=== PATIENT | male | born 1955 | race Caucasian/White ===

== ENCOUNTER 2023-06-04 09:14 | Outpatient (OUT) | payer MEDICARE, SELFPAY ==
[2023-06-04 10:05] LABS: Basophils Percent Auto 0.3 % (0.2-2.0); Eosinophils Absolute Auto 0.2 10^3/uL (0.0-0.7); Eosinophils Percent Auto 5.5 % (0.9-7.0); Hematocrit 42.9 % (42.0-54.0); Hemoglobin 15.1 g/dL (14.0-18.0); Immature Granulocytes Abs Auto 0.01 10^3/uL (0.00-0.03); Immature Granulocytes Pct Auto 0.3 % (0.0-0.5); Lymphocytes Absolute Auto 1.1 10^3/uL (1.2-3.8); Lymphocytes Percent Auto 34.8 % (20.5-60.0); Mean Corpuscular HGB Conc 35.2 g/dL (29.9-35.2); Mean Corpuscular Hemoglobin 33.4 pg (25.9-34.0); Mean Corpuscular Volume 94.9 fL (80.0-94.0); Mean Platelet Volume 10.1 fL (9.5-13.5); Monocytes Absolute Auto 0.5 10^3/uL (0.3-0.8); Monocytes Percent Auto 15.7 % (1.7-12.0); Neutrophils Absolute Auto 1.4 10^3/uL (1.4-6.5); Neutrophils Percent Auto 43.4 % (43.0-75.0); Platelet Count 129 10^3/uL (150-450); Red Blood Count 4.52 10^6/uL (4.70-6.10); Red Cell Distribution Width 13.9 % (11.0-15.0); White Blood Count 3.3 10^3/uL (4.0-11.0)
[2023-06-04 11:20] LABS: Alanine Aminotransferase 82 U/L (16-63); Albumin Globulin Ratio 1.4; Albumin Level 4.5 g/dL (3.4-5.0); Alkaline Phosphatase 61 U/L (46-116); Anion Gap 15.1; Aspartate Amino Transferase 61 U/L (15-37); Bilirubin Total 1.1 mg/dL (0.2-1.0); Calcium 9.1 mg/dL (8.5-10.1); Carbon Dioxide 26.8 mmol/L (21.0-32.0); Chloride 101 mmol/L (98-107); Chol HDL Ratio 4.6; Cholesterol 193 mg/dL (<=200); Estimated GFR (African America >60 (>=60); Estimated GFR (Non-African Ame >60 (>=60); Globulin 3.3 g/dL; Glucose 162 mg/dL (74-106); HDL Cholesterol 42 mg/dL (40-60); Potassium 3.9 mmol/L (3.5-5.1); Sodium 139 mmol/L (136-145); Thyroid Stimulating Hormone 0.623 uIU/mL (0.358-3.740); Total Protein 7.8 g/dL (6.4-8.2); Triglycerides 238 mg/dL (<=150); Uric Acid 5.1 mg/dL (3.5-7.2); VLDL CHOLESTEROL 47.6 mg/dL
[2023-06-04 11:52] LABS: Microalbumin Urine Random 5.4 mg/dL (<=30.0)
[2023-06-04 12:26] LABS: Estimated Average Glucose 120 mg/dL; Glycohemoglobin A1C 5.8 % (4.5-6.2)
[2023-06-04 12:57] LABS: Free T4 0.92 ng/dL (0.76-1.46)
== END 2023-06-04 09:15 | disposition home or self-care (01) ==
LOC: LAB 09:19
PROVIDERS: PCP Family Medicine; Visit Provider Family Medicine
DX: Z00.00 Encounter for general adult medical examination without abnormal findings (principal); I10 Essential (primary) hypertension; E11.65 Type 2 diabetes mellitus with hyperglycemia; E78.2 Mixed hyperlipidemia; E03.9 Hypothyroidism, unspecified; M1A.0790 Idiopathic chronic gout, unspecified ankle and foot, without tophus (tophi)
CPT/HCPCS: 36415; 80053; 80061; 82043; 83036; 84439; 84443; 84550; 85025

== ENCOUNTER 2024-01-28 12:12 | Outpatient (OUT) | payer MEDICARE, SELFPAY ==
[2024-01-28 12:53] LABS: Basophils Percent Auto 0.8 % (0.2-2.0); Eosinophils Absolute Auto 0.3 10^3/uL (0.0-0.7); Eosinophils Percent Auto 6.4 % (0.9-7.0); Hematocrit 42.6 % (42.0-54.0); Hemoglobin 14.7 g/dL (14.0-18.0); Immature Granulocytes Abs Auto 0.01 10^3/uL (0.00-0.03); Immature Granulocytes Pct Auto 0.3 % (0.0-0.5); Lymphocytes Absolute Auto 1.2 10^3/uL (1.2-3.8); Lymphocytes Percent Auto 29.8 % (20.5-60.0); Mean Corpuscular HGB Conc 34.5 g/dL (29.9-35.2); Mean Corpuscular Hemoglobin 32.7 pg (25.9-34.0); Mean Corpuscular Volume 94.9 fL (80.0-94.0); Mean Platelet Volume 10.8 fL (9.5-13.5); Monocytes Absolute Auto 0.7 10^3/uL (0.3-0.8); Monocytes Percent Auto 16.8 % (1.7-12.0); Neutrophils Absolute Auto 1.8 10^3/uL (1.4-6.5); Neutrophils Percent Auto 45.9 % (43.0-75.0); Platelet Count 145 10^3/uL (150-450); Red Blood Count 4.49 10^6/uL (4.70-6.10); Red Cell Distribution Width 13.9 % (11.0-15.0); White Blood Count 3.9 10^3/uL (4.0-11.0)
[2024-01-28 13:00] LABS: Estimated Average Glucose 146 mg/dL; Glycohemoglobin A1C 6.7 % (4.5-6.2)
[2024-01-28 13:21] LABS: Alanine Aminotransferase 74 U/L (16-63); Albumin Globulin Ratio 1.1; Alkaline Phosphatase 63 U/L (46-116); Anion Gap 13.7; Aspartate Amino Transferase 52 U/L (15-37); BUN Creatinine Ratio 16.5; Calcium 9.1 mg/dL (8.5-10.1); Carbon Dioxide 28.6 mmol/L (21.0-32.0); Chloride 101 mmol/L (98-107); Estimated GFR (African America >60 (>=60); Estimated GFR (Non-African Ame >60 (>=60); Globulin 3.8 g/dL; Glucose 219 mg/dL (74-106); Potassium 4.3 mmol/L (3.5-5.1); Sodium 139 mmol/L (136-145); Thyroid Stimulating Hormone 1.257 uIU/mL (0.358-3.740); Total Protein 7.8 g/dL (6.4-8.2)
== END 2024-01-28 12:13 | disposition home or self-care (01) ==
LOC: LAB 12:14
PROVIDERS: PCP Family Medicine; Visit Provider Family Medicine
DX: C61 Malignant neoplasm of prostate (principal); E11.65 Type 2 diabetes mellitus with hyperglycemia; E03.9 Hypothyroidism, unspecified
CPT/HCPCS: 36415; 80053; 83036; 84443; 85025

== ENCOUNTER 2024-05-26 10:35 | Outpatient (OUT) | payer MEDICARE, SELFPAY ==
[2024-05-26 11:30] LABS: Basophils Percent Auto 0.3 % (0.2-2.0); Eosinophils Absolute Auto 0.2 10^3/uL (0.0-0.7); Eosinophils Percent Auto 5.5 % (0.9-7.0); Hematocrit 43.6 % (42.0-54.0); Hemoglobin 15.3 g/dL (14.0-18.0); Immature Granulocytes Abs Auto 0.01 10^3/uL (0.00-0.03); Immature Granulocytes Pct Auto 0.3 % (0.0-0.5); Lymphocytes Absolute Auto 1.3 10^3/uL (1.2-3.8); Lymphocytes Percent Auto 37.7 % (20.5-60.0); Mean Corpuscular HGB Conc 35.1 g/dL (29.9-35.2); Mean Corpuscular Hemoglobin 33.2 pg (25.9-34.0); Mean Corpuscular Volume 94.6 fL (80.0-94.0); Mean Platelet Volume 10.7 fL (9.5-13.5); Monocytes Absolute Auto 0.5 10^3/uL (0.3-0.8); Monocytes Percent Auto 15.1 % (1.7-12.0); Neutrophils Absolute Auto 1.4 10^3/uL (1.4-6.5); Neutrophils Percent Auto 41.1 % (43.0-75.0); Platelet Count 148 10^3/uL (150-450); Red Blood Count 4.61 10^6/uL (4.70-6.10); Red Cell Distribution Width 13.9 % (11.0-15.0); White Blood Count 3.5 10^3/uL (4.0-11.0)
[2024-05-26 11:52] LABS: Estimated Average Glucose 134 mg/dL; Glycohemoglobin A1C 6.3 % (4.5-6.2)
[2024-05-26 12:09] LABS: Microalbumin Urine Random 12.3 mg/dL (<=30.0)
[2024-05-26 12:20] LABS: Alanine Aminotransferase 103 U/L (16-63); Albumin Globulin Ratio 1.2; Albumin Level 4.2 g/dL (3.4-5.0); Alkaline Phosphatase 63 U/L (46-116); Anion Gap 15.1; Aspartate Amino Transferase 70 U/L (15-37); BUN Creatinine Ratio 15.7; Bilirubin Total 1.1 mg/dL (0.2-1.0); Calcium 9.3 mg/dL (8.5-10.1); Carbon Dioxide 27.9 mmol/L (21.0-32.0); Chloride 102 mmol/L (98-107); Chol HDL Ratio 4.7; Cholesterol 202 mg/dL (<=200); Estimated GFR (African America >60 (>=60); Estimated GFR (Non-African Ame >60 (>=60); Globulin 3.6 g/dL; Glucose 192 mg/dL (74-106); HDL Cholesterol 43 mg/dL (40-60); Sodium 141 mmol/L (136-145); Total Protein 7.8 g/dL (6.4-8.2); Triglycerides 263 mg/dL (<=150); Uric Acid 4.6 mg/dL (3.5-7.2); VLDL CHOLESTEROL 52.6 mg/dL
[2024-05-26 12:22] LABS: Free T4 0.89 ng/dL (0.76-1.46)
== END 2024-05-26 10:36 | disposition home or self-care (01) ==
LOC: LAB 10:37
PROVIDERS: PCP Family Medicine; Visit Provider Family Medicine
DX: E03.9 Hypothyroidism, unspecified (principal); E11.65 Type 2 diabetes mellitus with hyperglycemia; L50.9 Urticaria, unspecified
CPT/HCPCS: 36415; 80053; 80061; 82043; 83036; 84439; 84443; 84550; 85025

== ENCOUNTER 2024-09-14 06:03 | Outpatient (OUT) | payer MEDICARE, SELFPAY ==
--- NOTE | 2024-09-14 | XR_ITS ---
The [address] [address] Patient Name: AMIRA DWYER MRN: [id number] date: 1955 Sex: M Assigned Patient Location: [facility] Current Patient Location: Accession/Order Number: [id number] Exam Date: 09/14/2024 06:29 Report Date: 09/15/2024 10:06 At the request of: EJ TURNER Procedure: XR knee RT 4V PROCEDURE: XR knee RT 4V HISTORY: RIGHT KNEE PAIN, M25.561 COMPARISON: None. FINDINGS: BONES:No fracture, dislocation, articular surface irregularity, or joint space narrowing. Prominent degenerative enthesophyte at the quadriceps tendon insertion into the patella. SOFT TISSUES:No visible soft tissue swelling. EFFUSION:None visible. OTHER: Negative. XR/XR knee RT 4V IMPRESSION: 1. No acute bone abnormality or significant degenerative joint disease. Electronically authenticated by: KHALIDA MEREDITH Date: 09/15/2024 10:06
--- NOTE | 2024-09-14 | XR_ITS ---
The [address] [address] Patient Name: AMIRA DWYER MRN: [id number] date: 1955 Sex: M Assigned Patient Location: [facility] Current Patient Location: Accession/Order Number: [id number] Exam Date: 09/14/2024 06:29 Report Date: 09/15/2024 10:07 At the request of: EJ TURNER Procedure: XR hip RT 2V w/ pelvis PROCEDURE: XR hip RT 2V w/ pelvis HISTORY: PAIN OF RIGHT HIP, M25.551 COMPARISON: None. FINDINGS: BONES:No fracture, acute abnormality, or significant arthropathy. SOFT TISSUES:No visible soft tissue swelling. EFFUSION:None visible. OTHER: Negative. XR/XR hip RT 2V w/ pelvis IMPRESSION: 1. No acute bone abnormality or significant degenerative joint disease. Electronically authenticated by: KHALIDA MEREDITH Date: 09/15/2024 10:07
--- OUTSIDE RECORDS SUMMARY | 2024-09-14 06:06 | XMS_ITS | CCD ---
Author Organization [facility] Care Team Providers Care Decontaminator Name Role Phone Flaquita Turner Primary Care Provider [phone] YUE, DR FLAQUITA Veliz Admitting Unavailable TURNER, DR FLAQUITA Veliz Attending Unavailable TURNER, DR FLAQUITA Veliz Referring Unavailable MAGDIEL, DR GARCIA Primary Care Unavailable YUE, DR FLAQUITA Veliz Consulting Unavailable YUE, DR FLAQUITA Veliz Primary Care Unavailable TOM, EDD Admitting Unavailable TOM, EDD Attending Unavailable Benedicto, Tawnya Consulting Unavailable TOM, EDD Consulting Unavailable YUE, DR FLAQUITA Veliz Admitting Unavailable TURNER, DR FLAQUITA Veliz Attending Unavailable YUE, DR FLAQUITA Veliz Primary Care Unavailable TURNER, DR FLAQUITA Veliz Consulting Unavailable TURNER, DR FLAQUITA Veliz Admitting Unavailable TURNER, DR FLAQUITA Veliz Attending Unavailable TURNER, DR FLAQUITA Veliz Primary Care Unavailable TURNER, DR FLAQUITA Veliz Consulting Unavailable ELZBIETA RYAN Admitting Unavailable ELZBIETA RYAN Attending Unavailable YUE, DR FLAQUITA Veliz Primary Care Unavailable ELZBIETA RYAN Consulting Unavailable FLAQUITA TURNER Primary Care Physician MD Flaquita Turner Primary Care Provider MD Jaja Lang Attending Provider MD Elzbieta Perez Referring Provider MD Flaquita Turner Primary Care Provider MD Jaja Lang Attending Provider MD Elzbieta Perez Referring Provider [phone] MD Flaquita Turner Primary Care Provider MD Jaja Lang Attending Provider MD Elzbieta Perez Referring Provider [phone] MD Flaquita Turner Primary Care Provider MD Jaja Lang Attending Provider MD Elzbieta Perez Referring Provider [phone] Flaquita Turner Unavailable MD Flaquita Turner Primary Care Provider MD Jaja Lang Attending Provider MD Elzbieta Perez Referring Provider Jaja Lang Admitting Unavailable Jaja Lang Attending Unavailable Flaquita Turner Primary Care Unavailable Elzbieta Perez Referring Unavailable Allergies Allergy Classification Reported Allergen(s) Allergy Type Date of Onset Reaction(s) Facility (7 sources) patient allergy list reviewed by nurse or physicia Propensity to adverse reactions Comment:Done [email or web address] Other (7 sources) Allergies Reconciled Propensity to adverse reactions Unknown [email or web address] Other Medications Current Medications Medication Drug Class(es) Dates Sig (Normalized) Sig (Original) Accu-Chek Guide - (6 sources) Accu-Chek Guide - USE TO TEST BLOOD SUGAR ONCE DAILY for 90 Active allopurinol 300 mg oral tablet (20 sources) Xanthine Oxidase Inhibitor Start: 09-13-2021 End: 03-09-2024 take 300 mg by mouth once daily Allopurinol Active 300 MG PO Daily 90 90 March 09, 2024 11:18am Comment on above: Take 300 mg by mouth once daily. amoxicillin 875 mg / clavulanate 125 mg oral tablet (3 sources) Penicillin-class Antibacterial Start: 10-17-2023 take 1 tablet by mouth every twelve hours Amoxicillin-Pot Clavulanate 875-125 MG 1 tablet Orally every 12 hrs for 10 day(s) Sep, Active betamethasone 0.5 mg/ml / clotrimazole 10 mg/ml topical cream (1 source) Azole Antifungal, Corticosteroid Start: 01-28-2024 Clotrimazole-Bet amethasone Active 1 APPLIC TOPICAL Twice daily 45 14 January 28, 2024 12:00am bisoprolol fumarate 5 mg / hydroCHLOROthiazide 6.25 mg oral tablet (2 sources) Thiazide Diuretic, beta-Adrenergic Johnson Start: 01-13-2018 take 1 tablet by mouth once daily bisoprolol-hydro chlorothiazide 5 mg-6.25 mg Tab 1 tab(s), Oral, Daily, Refill(s) 0, High blood pressure Start Date: 01/13/18 Status: Ordered esomeprazole 20 mg delayed release oral capsule (20 sources) Proton Pump Inhibitor Start: 06-27-2022 take 1 capsule by mouth once daily Esomeprazole Magnesium (Nexium) 20 mg Capsule,Delayed Release(Dr/Ec) Active 20 MG PO Daily June 27, 2022 12:00am Start: 09-13-2021 take 20 mg by mouth once daily Nexium 20 mg, Oral, Daily, Refills(s) 0, Control of stomach acid Start Date: 09/13/21 Status: Ordered Start: 09-13-2021 Nexium Oral, D aily, Refills(s) 0 Start Date: 09/13/21 Status: Ordered levothyroxine sodium 0.137 mg oral tablet (20 sources) l-Thyroxine Start: 06-27-2022 End: 03-09-2024 take 1 tablet by mouth once daily Levothyroxine (Synthroid) 137 mcg tablet Active 137 MCG PO Daily March 09, 2024 11:18am Start: 01-13-2018 take 137 ug by mouth once chavo y Synthroid 137 mcg, Oral, Daily, Refills(s) 0, Thyroid Start Date: 01/13/18 Status: Ordered Start: 01-13-2018 Synthroid 112 microgram, Oral, Daily, Refills(s) 0, Thyroid Start Date: 01/13/18 Status: Ordered Synthroid 137 MC G TAKE 1 TABLET ONCE DAILY for 90 Active take 1 capsule by mo uth once daily before breakfast levothyroxine 112 mcg cap Take 112 mcg by mouth daily before breakfast. 0 Active Comment on above: Take 112 mcg by mout h daily before breakfast. linagliptin 5 mg oral tablet (18 sources) Dipeptidyl Peptidase 4 Inhibitor Start: 4 End: 4 take 1 tablet by mouth once daily Linagliptin (Tradjenta) 5 mg tablet Active 0 .ROUTE .COMPLEX April 14, 2024 2:06pm TAKE 1 TABLET BY MOUTH EVERY DAY Start: 06-13-2022 End: 01-20-2024 take 1 tablet by mouth once daily Linagliptin (Tradjenta) 5 mg Tablet Discontinued 5 MG PO Daily June 27, 2022 12:00am January 20, 2024 1:13pm losartan potassium 100 mg oral tablet (20 sources) Angiotensin 2 Receptor Johnson Start: 05-26-2024 take 100 mg by mouth once daily Losartan Active 100 MG PO Daily May 26, 2024 10:29am Start: 02-14-2024 End: 05-26-2024 take 50 mg by mouth once daily Losartan Discontinued 5 0 MG PO Daily March 09, 2024 11:18am May 26, 2024 10:29am Start: 06-27-2022 End: 02-14-2024 take 25 mg by mouth once daily Losartan Discontinued 2 5 MG PO Daily June 27, 2022 12:00am February 14, 2024 9:37am Start: 09-13-2021 take 1 tablet by margaret th once daily losartan 25 mg Tab 25 mg = 1 tab(s), Oral, Daily, Refills(s) 0, High blood pressure Start Date: 09/13/21 Status: Ordered Losartan Potassi um 50 MG TAKE 1 TABLET DAILY for 90 days Active 24 hr metFORMIN hydrochloride 750 mg extended release oral tablet (11 sources) Biguanide Start: 06-27-2022 take 750 mg by mouth once daily Metformin Active 750 MG PO Daily June 27, 2022 12:00am Start: 05-03-2022 take 1 tablet by margaret th once daily metformin 750 mg oral tablet, extended release 750 mg = 1 tab(s), Oral, Daily, TAKE 1 TABLET BY MOUTH EVERY DAY, High blood sugar Start Date: 05/03/22 Status: Ordered take 1 tablet by margaret th twice daily metFORMIN HCl ER 750 MG TAKE 1 TABLET BY MOUTH TWICE A DAY for 90 Active 24 hr metoprolol succinate 50 mg extended release oral tablet (19 sources) beta-Adrenergic Johnson Start: 02-14-2024 End: 03-09-2024 take 50 mg by mouth once daily Metoprolol Succinate Active 50 MG PO Daily March 09, 2024 11:19am Start: 02-11-2023 End: 02-14-2024 Metoprolol Succinate Discont inued MG PO February 11, 2023 12:00am February 14, 2024 10:05am Start: 09-13-2021 take 1 tablet by margaret th once daily metoprolol 50 mg ER Tab 50 mg = 1 tab(s), Oral, Daily, Refills(s) 0, High blood pressure Start Date: 09/13/21 Status: Ordered METOPROLOL SUCCI MARCOS ORAL Take by mouth. 0 Active Comment on above: Take by mouth. Multi Vitamin+ (5 sources) Start: 09-13-2021 Multi Vitamin+ Oral, Daily, Refill(s) 0, Prophylaxis Start Date: 09/13/21 Status: Ordered Start: 09-13-2021 Multi Vitamin+ Refill(s) 0 Start Date: 09/13/21 Status: Ordered predniSONE 10 mg oral tablet (3 sources) Start: 07-25-2023 predniSONE 10 MG 4 tabs po daily x 2 days, 3 tabs daily x 2 days, 2 tabs daily x 2 days, 1 tab daily x 2 days Orally Once a day for 8 Sep, Active Psyllium (5 sources) Start: 09-13-2021 take 1.7 g by mouth once daily Metamucil 1.7 gm, Oral, Daily, Refills(s) 0, Constipation Start Date: 09/13/21 Status: Ordered Start: 09-13-2021 Metamucil Oral , Refills(s) 0 Start Date: 09/13/21 Status: Ordered Completed/Discontinued Medications Medication Drug Class(es) Dates Sig (Normalized) Sig (Original) Methylprednisolone (7 sources) Corticosteroid Start: 01-28-2024 End: 05-26-2024 Methylprednisolone Discontinued 0 PO per package directions January 28, 2024 12:00am May 26, 2024 8:53am PO PER PKG DIR for 6 days Start: 07-10-2023 methylPREDNISo lone 4 MG as directed Orally for 6 days Jun, Active One Daily Complete - (8 sources) One Daily Comple te - as directed Orally Active simvastatin 40 mg oral tablet (12 sources) HMG-CoA Reductase Inhibitor Start: 05-26-2024 End: 05-26-2024 take 40 mg by mouth once daily Simvastatin Discontinued 40 MG PO Daily May 26, 2024 12:00am May 26, 2024 10:01am Start: 01-13-2018 take 40 mg by mouth once daily at bedtime simvastatin 40 mg, Oral, Once a day (at bedtime), Refills(s) 0, High cholesterol Start Date: 01/13/18 Status: Ordered Comment on above: Take 40 mg by mouth daily at bedtime. tamsulosin hydrochloride 0.4 mg oral capsule (7 sources) alpha-Adrenergic Johnson Start: 2 End: 3 take 1 capsule by mouth once daily Tamsulosin (Flomax) 0.4 mg Capsule Discontinued 0.4 MG PO Daily 90 June 27, 2022 12:00am February 11, 2023 8:50am Problems Active Problems Problem Classification Problem Date Documented Date Episodic/Chronic Allergic reactions (4 sources) Allergic contact dermatitis, unspecified cause; Translations: [Urticaria] Episodic Bacterial infection; unspecified site (1 source) Other specified bacterial agents as the cause of diseases classified elsewhere Episodic Cancer of prostate (16 sources) Malignant neoplasm of prostate; Translations: [Malignant tumor of prostate] Onset: 06-13-2022 Chronic Diabetes mellitus with complications (19 sources) Type 2 diabetes mellitus; Translations: [Type 2 diabetes mellitus with hyperglycemia] Chronic Diabetes mellitus without complication (2 sources) Diabetes mellitus 05-03-2022 Chronic Diabetes mellitus without complication (15 sources) Impaired fasting glucose; Translations: [Abnormal glucose level] Onset: 12-30-2017 Episodic Diseases of white blood cells (13 sources) Decreased white blood cell count, unspecified; Translations: [Leukopenia] Onset: 05-26-2021 09-08-2021 Chronic Disorders of lipid metabolism (20 sources) Hyperlipidemia, unspecified; Translations: [Hyperlipidemia] Onset: 03-12-2022 04-26-2018 Chronic Esophageal disorders (11 sources) Gastro-esophageal reflux disease without esophagitis; Translations: [Gastroesophageal reflux disease] Onset: 10-27-2021 04-26-2022 Chronic Essential hypertension (20 sources) Essential (primary) hypertension; Translations: [Essential hypertension] Onset: 03-12-2022 Chronic Genitourinary symptoms and ill-defined conditions (4 sources) Nocturia; Translations: [Nocturia] Onset: 04-25-2022 Episodic Gout and other crystal arthropathies (20 sources) Gout, unspecified; Translations: [Gouty arthritis of right great toe] Onset: 05-05-2018 09-08-2021 Chronic Hepatitis (8 sources) Nonalcoholic steatohepatitis; Translations: [Nonalcoholic steatohepatitis ([place]ERCADO)] Chronic Hyperplasia of prostate (9 sources) Benign prostatic hyperplasia with lower urinary tract symptoms; Translations: [Benign prostatic hypertrophy with outflow obstruction] Onset: 03-12-2022 Chronic Immunizations and screening for infectious disease (7 sources) Vaccination given; Translations: [Encounter for immunization] Episodic Other circulatory disease (14 sources) Elevated blood-pressure reading without diagnosis of hypertension; Translations: [Elevated blood-pressure reading, without diagnosis of hypertension] Onset: 10-14-2013 Episodic Other diseases of kidney and ureters (1 source) Urinary tract obstruction; Translations: [Other obstructive and reflux uropathy] Onset: 04-25-2022 Episodic Other hematologic conditions (7 sources) Other abnormality of red blood cells; Translations: [Abnormality of red blood cells] Episodic Other injuries and conditions due to external causes (6 sources) History of fall; Translations: [History of falling] Episodic Other injuries and conditions due to external causes (1 source) History of falling; Translations: [History of falling] Episodic Other non-traumatic joint disorders (7 sources) Arthralgia of the lower leg; Translations: [Pain in left knee] Episodic Other nutritional; endocrine; and metabolic disorders (11 sources) Morbid obesity; Translations: [Morbid (severe) obesity due to excess calories] Onset: 06-17-2017 09-08-2021 Chronic Other nutritional; endocrine; and metabolic disorders (8 sources) Body mass index 30+ - obesity; Translations: [Body mass index (BMI) 39.0-39.9, adult] Chronic Other nutritional; endocrine; and metabolic disorders (20 sources) Obese class II; Translations: [Body mass index 39.0-39.9, adult] Onset: 12-30-2017 Chronic Other nutritional; endocrine; and metabolic disorders (1 source) Morbid (severe) obesity due to excess calories; Translations: [Morbid (severe) obesity due to excess calories] Onset: 06-17-2017 Chronic Other nutritional; endocrine; and metabolic disorders (1 source) Body mass index (BMI) 38.0-38.9, adult; Translations: [Body mass index (BMI) 38.0-38.9, adult] Chronic Other screening for suspected conditions (not mental disorders or infectious disease) (20 sources) Elevated prostate specific antigen [PSA]; Translations: [Encounter for screening for malignant neoplasm of prostate] Onset: 05-26-2021 Episodic Other upper respiratory disease (7 sources) Seasonal allergic rhinitis; Translations: [Other seasonal allergic rhinitis] Onset: 03-13-2017 Chronic Other upper respiratory disease (6 sources) Allergic rhinitis; Translations: [Allergic rhinitis, unspecified] Onset: 03-13-2017 Chronic Other upper respiratory disease (1 source) Allergic rhinitis, unspecified; Translations: [Allergic rhinitis, unspecified] Onset: 03-13-2017 Chronic Systemic lupus erythematosus and connective tissue disorders (6 sources) Autoimmune disease; Translations: [Autoimmune disease, not elsewhere classified] Onset: 12-03-2013 Chronic Thyroid disorders (20 sources) Hypothyroidism, unspecified; Translations: [Hyperthyroidism] Onset: 12-03-2013 Chronic Thyroid disorders (5 sources) Thyroid dysfunction 04-26-2018 Episodic Unclassified (1 source) Body mass index 39.0-39.9, adult; Translations: [Body mass index 39.0-39.9, adult] Onset: 12-30-2017 Unclassified (1 source) Autoimmune disease, not elsewhere classified; Translations: [Autoimmune disease, not elsewhere classified] Onset: 12-03-2013 Past or Other Problems Problem Classification Problem Date Documented Da te Episodic/Chronic Abdominal pain (7 sources) Right lower quadrant pain; Translations: [Right lower quadrant pain] Onset: 01-24-2016 Episodic Acute bronchitis (7 sources) Acute bronchitis; Translations: [Acute bronchitis, unspecified] Onset: 01-04-2016 Episodic E Codes: Fall (1 source) Fall (on) (from) other stairs and steps, initial encounter; Translations: [FALL ON FROM OTH STAIRS STEPS INIT] Onset: 10-27-2021 Episodic Hemorrhoids (7 sources) Hemorrhoids; Translations: [Other hemorrhoids] Onset: 08-11-2018 Episodic Other non-traumatic joint disorders (3 sources) Pain in left knee; Translations: [PAIN IN LEFT KNEE] Onset: 10-25-2021 Episodic Other non-traumatic joint disorders (7 sources) Arthralgia of the ankle and/or foot; Translations: [Pain in joint, ankle and foot] Onset: 06-17-2017 Episodic Other upper respiratory infections (15 sources) Acute upper respiratory infection; Translations: [Acute upper respiratory infections of unspecified site] Onset: 10-14-2013 Episodic Spondylosis; intervertebral disc disorders; other back problems (7 sources) Low back pain; Translations: [Lumbago] Onset: 12-26-2015 Episodic Sprains and strains (1 source) Sprain of unspecified site of left knee, initial encounter; Translations: [SPRAIN UNS SITE LT KNEE INITIAL] Onset: 10-27-2021 Episodic Superficial injury; contusion (7 sources) Contusion of right foot; Translations: [Contusion of right foot, initial encounter] Onset: 06-17-2017 Episodic Results Test Name Value Interpretation Reference Range Facility PSA Total (Not a Screen)on 0 01-23-2024 PSA Total (Not a Screen) 0.890 ng/mL Normal 0.000-4.000 [place] Comment on above: Result Comment: Seri al tumor marker results determined by assays using different manufacturers or methods may not be comparable. [facility] food clerk and method: [employer] DXI, CHEMILUMINESCENT IMMUNOASSAY. PERFORMED BY: [place] [address] PATHOLOGIST CARTON INSPECTOR ABDULKADIR MEEKS M.D. Performed By: #### P SATOTAL #### [facility] [address] [place] [address] Consultation Noteon 08-28-20 Consultation Note [id number] #1.00TIFF Normal [facility] PSA Total (Not a Screen)on 1 PSA Total (Not a Screen) 1.580 ng/mL Normal 0.000-4.000 [place] Comment on above: Result Comment: PERF ORMED BY: [place] [address] PATHOLOGIST CARTON INSPECTOR ABDULKADIR MEEKS M.D. Performed By: #### P SATOTAL #### [facility] [address] [place] [address] Prostate specific Ag [Mass/v olume] in Serum or PlasmaOrdered By: Jaja Lang on 08-26-2023 Prostate specific Ag [Mass/Vol] 1.580 ng/mL 0.000-4.000 [facility] Consultation Noteon 06-10-20 Consultation Note [id number] #1.00CD:127 Normal [facility] PSA Total (Not a Screen)on 0 05-28-2023 PSA Total (Not a Screen) 2.300 ng/mL Normal 0.000-4.000 [place] Comment on above: Result Comment: PERF ORMED BY: [address] [place] [address] PATHOLOGIST CARTON INSPECTOR ABDULKADIR MEEKS M.D. Performed By: #### P SATOTAL #### [facility] [address] [place] [address] Prostate specific Ag [Mass/v olume] in Serum or PlasmaOrdered By: Jaja Lang on 05-28-2023 Prostate specific Ag [Mass/Vol] 2.300 ng/mL 0.000-4.000 [facility] PSA Total (Not a Screen)on 0 05-16-2023 PSA Total (Not a Screen) 2.250 ng/mL Normal 0.000-4.000 [place] Comment on above: Result Comment: PERF ORMED BY: [place] [address] PATHOLOGIST CARTON INSPECTOR ABDULKADIR MEEKS M.D. Performed By: #### P SATOTAL #### [facility] [address] [place] [address] Consultation Noteon 02-21-20 Consultation Note [id number] #1.00CD:127 Normal [facility] PSA Total (Not a Screen)on 0 02-08-2023 PSA Total (Not a Screen) 1.100 ng/mL Normal 0.000-4.000 [place] Comment on above: Result Comment: PERF ORMED BY: [place] [address] PATHOLOGIST CARTON INSPECTOR ABDULKADIR MEEKS M.D. Performed By: #### P SATOTAL #### [facility] [address] [id number] [facility] Consultation Noteon 11-02-20 Consultation Note [id number] #1.00CD:127 Normal [facility] No Panel InformationOrdered By: Jaja Lang on 10-29-2022 Prostate Specific Antigen Total 1.760 ng/mL 0.000-4.000 [facility] Basophils Auto (Bld) [#/Vol] Ordered By: Chris Reid on 07-10-2022 Basophils (Bld) [#/Vol] 0.0 10*3/uL 0.0-0.2 [facility] Basophils/100 WBC Auto (Bld) Ordered By: Chris Reid on 07-10-2022 Basophils/100 WBC (Bld) 1.0 % . [facility] Blood hemoglobin measurement (mass/volume)Ordered By: Chris Reid on 07-10-2022 Hemoglobin (Bld) [Mass/Vol] 14.5 g/dL 13.0-17.0 [facility] Blood leukocytes automated c ount (number/volume)Ordered By: Chris Reid on 07-10-2022 WBC (Bld) [#/Vol] 3.3 10*3/uL 4.5-11.0 [facility] Creatinine and Glomerular fi ltration rate.predicted panel (S/P/Bld)Ordered By: Chris Reid on 07-10-2022 Creatinine [Mass/Vol] 0.83 mg/dL 0.64-1.27 [facility] Eosinophils Auto (Bld) [#/Vo l]Ordered By: Chris Reid on 07-10-2022 Eosinophils (Bld) [#/Vol] 0.3 10*3/uL 0.0-0.45 [facility] Eosinophils/100 WBC Auto (Bl d)Ordered By: Chris Reid on 07-10-2022 Eosinophils/100 WBC (Bld) 9.5 % . [facility] Erythrocyte distribution wid th Auto (RBC) [Ratio]Ordered By: Chris Reid on 07-10-2022 Erythrocyte distribution width (RBC) [Ratio] 15.7 % 12.0-14.8 [facility] Estimated glomerular filtrat ion rate (GFR) non- AmericanOrdered By: Chris Reid on 07-10-2022 GFR/1.73 sq M.predicted among non-blacks MDRD (S/P/Bld) [Vol rate/Area] > 60 mL/Min [facility] Glucose Glucometer (BldC) [M ass/Vol]Ordered By: Jaja Lang on 07-10-2022 Glucose [Mass/Vol] 141 mg/dL [facility] Comment on above: Random Glucose Refer ence Range is dependent on time and content of last meal. Glucose of more than 200 mg/dL in a nonstressed, ambulatory subject supports the diagnosis of Diabetes Mellitus. Hematocrit Auto (Bld) [Volum e fraction]Ordered By: Chris Reid on 07-10-2022 Hematocrit (Bld) [Volume fraction] 43.1 % 38.8-50.0 [facility] - Hematology and Cell countsOrdered By: Chris Reid on 07-10-2022 Nucleated RBC/100 WBC (Bld) [Ratio] 0.0 % 0-0.5 [facility] Lymphocytes Auto (Bld) [#/Vo l]Ordered By: Chris Reid on 07-10-2022 Lymphocytes (Bld) [#/Vol] 1.1 10*3/uL 1.00-4.8 [facility] Lymphocytes/100 WBC Auto (Bl d)Ordered By: Chris Reid on 07-10-2022 Lymphocytes/100 WBC (Bld) 33.7 % . [facility] MCH Auto (RBC) [Entitic mass ]Ordered By: Chris Reid on 07-10-2022 MCH (RBC) [Entitic mass] 32.6 pg 27.5-35.2 [facility] MCHC Auto (RBC) [Mass/Vol]Or dered By: Chris Reid on 07-10-2022 MCHC (RBC) [Mass/Vol] 33.8 g/dL 32.5-35.6 [facility] MCV Auto (RBC) [Entitic vol] Ordered By: Chris Reid on 07-10-2022 MCV (RBC) [Entitic vol] 96.6 fL 83.5-101 [facility] Monocytes Auto (Bld) [#/Vol] Ordered By: Chris Reid on 07-10-2022 Monocytes (Bld) [#/Vol] 0.5 10*3/uL 0.0-0.8 [facility] Monocytes/100 WBC Auto (Bld) Ordered By: Chris Reid on 07-10-2022 Monocytes/100 WBC (Bld) 14.7 % . [facility] Neutrophils Auto (Bld) [#/Vo l]Ordered By: Chris Reid on 07-10-2022 Neutrophils (Bld) [#/Vol] 1.4 10*3/uL 1.8-7.7 [facility] Neutrophils/100 WBC Auto (Bl d)Ordered By: Chris Reid on 07-10-2022 Neutrophils/100 WBC (Bld) 41.1 % . [facility] No Panel InformationOrdered By: Jaja Lang on 07-10-2022 Bedside Glucose Comment Glu2: cleaned meter [facility] No Panel InformationOrdered By: Chris Reid on 07-10-2022 Estimated GFR () > 60 mL/Min [facility] Comment on above: GFR estimated refere nce range: According to KDOQI guidelines, <60 ml/min/1.73m2 is sufficient to diagnose a patient with chronic kidney disease. Pharmacy Creatinine Clearance (Chem 100.53 [facility] Platelet mean volume Auto (B ld) [Entitic vol]Ordered By: Chris Reid on 07-10-2022 Platelet mean volume (Bld) [Entitic vol] 8.4 fL 6.6-10.1 [facility] Platelets Auto (Bld) [#/Vol] Ordered By: Chris Reid on 07-10-2022 Platelets (Bld) [#/Vol] 146 10*3/uL 150-450 [facility] RBC Auto (Bld) [#/Vol]Ordere d By: Chris Reid on 07-10-2022 RBC (Bld) [#/Vol] 4.46 10*6/uL 3.90-5.60 [facility] Serum or plasma calcium lidya urement (mass/volume)Ordered By: Chris Reid on 07-10-2022 Calcium [Mass/Vol] 9.2 mg/dL 8.2-10.2 [facility] Serum or plasma chloride huyn surement (moles/volume)Ordered By: Chris Reid on 07-10-2022 Chloride [Moles/Vol] 101 mmol/L 95-114 [facility] Serum or plasma glucose lidya urement (mass/volume)Ordered By: Chris Reid on 07-10-2022 Glucose [Mass/Vol] 139 mg/dL 70-100 [facility] Comment on above: ADA recommended refe rence range Random Glucose Reference Range is dependent on time and content of last meal. Glucose of more than 200 mg/dL in a nonstressed, ambulatory subject supports the diagnosis of Diabetes Mellitus. Serum or plasma potassium me asurement (moles/volume)Ordered By: Chris Reid on 07-10-2022 Potassium [Moles/Vol] 3.7 mmol/L 3.5-5.1 [facility] Serum or plasma sodium measu rement (moles/volume)Ordered By: Chris Reid on 07-10-2022 Sodium [Moles/Vol] 137 mmol/L 136-146 [facility] Serum or plasma total carbon dioxide measurement (moles/volume)Ordered By: Chris Reid on 07-10-2022 CO2 [Moles/Vol] 24.9 mmol/L 22.0-30.0 [facility] Serum or plasma urea nitroge n measurement (mass/volume)Ordered By: Chris Reid on 07-10-2022 Urea nitrogen [Mass/Vol] 14 mg/dL 9- [facility] COVID-19 Positive/NegativeOr dered By: Jaja Lang on 07-06-2022 SARS-CoV-2 (COVID-19) N gene MICHELET+probe Ql (Resp) Negative Negative [facility] Comment on above: Testing for SARS-CoV -2 by RT-PCR This test was developed and its performance characteristics determined by [employer] and validated at the [place]. This test has not been FDA cleared or approved. This test has been authorized by FDA under an Emergency Use Authorization (EUA). This test has been validated in accordance with the FDA's Guidance Document (Policy for Diagnostics Testing in Laboratories Certified to Perform High Complexity Testing under CLIA prior to Emergency Use Authorization for Coronavirus Disease-2019 during the Public Health Emergency) issued on February 18, 2020. This test is only authorized for the duration of time the declaration that circumstances exist justifying the authorization of the emergency use of in vitro diagnostic tests for detection of SARS-CoV-2 virus and/or diagnosis of COVID-19 infection under section 564(b)(1) of the Act, 21 U.S.C. 360bbb-3(b)(1), unless the authorization is terminated or revoked sooner. CHEMISTRYOrdered By: Lab ROP User on 05-29-2022 Glucose [Mass/Vol] 166 mg/dL High 55 - 99 mg/dL [facility] Subsection Comment on above: Result Comment: Nicolas blackmon RN/ POC Device SN [id number] Invalid Interpretation Code [facility] Subsection POC User ID [id number] Invalid Interpretation Code [facility] Subsection POC Username CRISTOPHER STANLEY Invalid Interpretation Code [facility] Subsection CHEMISTRYOrdered By: SYSTEM SYSTEM on 04-26-2022 Anion gap [Moles/Vol] 15 mmol/L Normal 6 - 16 mEq/L [facility] Calcium [Mass/Vol] 9.6 mg/dL Normal 8.9 - 11. 1 mg/dL [facility] Chloride [Moles/Vol] 96 mmol/L Low 101 - 1 11 mmol/L [facility] CO2 [Moles/Vol] 25 mmol/L Normal 21 - 31 mmol/L [facility] Creatinine [Mass/Vol] 0.9 mg/dL Normal 0.5 - 1.3 mg/dL [facility] GFR/1.73 sq M.predicted among blacks MDRD (S/P/Bld) [Vol rate/Area] mL/min/1.73 m2 Normal >=59mL/min/1 .73 m2 [facility] Chem S GFR/1.73 sq M.predicted among non-blacks MDRD (S/P/Bld) [Vol rate/Area] mL/min/1.73 m2 Normal >=59mL/min/1 .73 m2 [facility] Chem S Glucose [Mass/Vol] 371 mg/dL High 55 - 199 mg/dL [facility] Potassium [Moles/Vol] 4.0 mmol/L Normal 3.5 - 5.3 mmol/L [facility] Remisol Sodium [Moles/Vol] 132 mmol/L Low 135 - 145 mmol/L [facility] Remisol Urea nitrogen [Mass/Vol] 25 mg/dL High 5 - 21 mg/dL [facility] Remisol Urea nitrogen/Creatinine [Mass ratio] 28 mg/mg High 10 - 20 [facility] Remisol COAGULATIONOrdered By: Terrie Arroyo on 04-26-2022 aPTT Coag (PPP) [Time] 32.0 s Normal 25.1 - 36.5 second(s) [facility] Auto Coag INR Coag (PPP) [Relative time] 1.1 {INR} Invalid Interpretation Code [facility] Auto Coag PT Coag (PPP) [Time] 12.6 s Normal 10.2 - 12.9 second(s) [facility] Auto Coag HEMATOLOGYOrdered By: SYSTEM SYSTEM on 04-26-2022 Basophils/100 WBC (Bld) 0.5 % Normal 0.0 - 2.0 % [facility] HemeAutoSS Basophils/Leukocytes Auto (Bld) [Pure # fraction] 0.0 E9/L Normal 0.0 - 0.2 E9/L [facility] HemeAutoSS Eosinophils/100 WBC (Bld) 4.5 % Normal 0.0 - 8.0 % [facility] HemeAutoSS Eosinophils/Leukocytes Auto (Bld) [Pure # fraction] 0.2 E9/L Normal 0.0 - 0.5 E9/L [facility] HemeAutoSS Lymphocytes/100 WBC (Bld) 34.1 % Normal 14.0 - 50.0 % [facility] HemeAutoSS Lymphocytes/Leukocytes Auto (Bld) [Pure # fraction] 1.2 E9/L Normal 1.0 - 4.0 E9/L [facility] HemeAutoSS Monocytes/100 WBC (Bld) 13.1 % Normal 4.0 - 14.0 % [facility] HemeAutoSS Monocytes/Leukocytes Auto (Bld) [Pure # fraction] 0.5 E9/L Normal 0.2 - 1.0 E9/L [facility] HemeAutoSS Neutrophils/100 WBC (Bld) 47.8 % Normal 36.0 - 75.0 % [facility] HemeAutoSS Neutrophils/Leukocytes Auto (Bld) [Pure # fraction] 1.7 E9/L Low 2.0 - 7.5 E9/L [facility] HemeAutoSS HEMATOLOGYOrdered By: Samira Dawkins on 04-26-2022 Erythrocyte distribution width (RBC) [Ratio] 15.1 % High 10.9 - 14.2 % [facility] HemeAutoSS Hematocrit (Bld) [Volume fraction] 45.3 % Normal 37.7 - 49.0 % [facility] HemeAutoSS Hemoglobin (Bld) [Mass/Vol] 15.3 g/dL Normal 13.5 - 17.5 gm/dL [facility]eAutoSS MCH (RBC) [Entitic mass] 32.0 pg Normal 27.0 - 34.0 pg [facility]eAutoSS MCHC (RBC) [Mass/Vol] 33.8 g/dL Normal 31.4 - 36.0 gm/dL [facility] HemeAutoSS MCV (RBC) [Entitic vol] 94.8 fL Normal 80.0 - 100.0 fL [facility]eAutoSS Platelet mean volume (Bld) [Entitic vol] 8.9 fL Normal 6.4 - 10.8 fL [facility] HemeAutoSS Platelets (Bld) [#/Vol] 146.0 E9/L Low 150.0 - 500.0 E9/L [facility]eAutoSS RBC (Bld) [#/Vol] 4.8 E12/L Normal 4.3 - 5.9 E12/L [facility] HemeAutoSS WBC corrected for nucl RBC Auto (Bld) [#/Vol] 3.7 E9/L Low 4.0 - 11.0 E9/L [facility] HemeAutoSS URINALYSISOrdered By: Terrie singleton on 04-26-2022 Bilirubin Ql (U) Negative (04/26/22 2:25 PM) Normal Negative [facility] UA Auto SS Clarity (U) Clear (04/26/22 2:25 PM) Normal Clear [facility] UA Auto SS Color (U) Straw *ABN* (04/26/22 2:25 PM) Invalid Interpretation Code Yellow [facility] UA Auto SS Epithelial cells.squamous LM.HPF (Urine sed) [#/Area] 0-2 /HPF Normal 0-2/HPF [facility] UA Aut o SS Glucose Test strip (U) [Mass/Vol] 3+ *ABN* (04/26/22 2:25 PM) Invalid Interpretation Code Negative [facility] UA Auto SS Hemoglobin Ql (U) Negative (04/26/22 2:25 PM) Normal Negative [facility] UA Auto SS Ketones (U) [Mass/Vol] Negative (04/26/22 2:25 PM) Normal Negative [facility] UA Auto SS [place].plasma/[place] .RBC (Bld) [Mass ratio] 0-3 /HPF Normal 0-3/HPF [facility] UA Auto SS Nitrite Ql (U) Negative (04/26/22 2:25 PM) Normal Negative [facility] UA Auto SS pH (U) 6.0 *NA* (04/26/22 2:25 PM) Invalid Interpretation Code 5.0 - 9.0 [facility] UA Auto SS Protein (U) [Mass/Vol] Negative (04/26/22 2:25 PM) Normal Negative [facility] UA Auto SS Specific gravity (U) [Rel density] <=1.005 *NA* (04/26/22 2:25 PM) Invalid Interpretation Code 1.005 - 1.030 [facility] Auto SS UA Spec Desc Clean Catch (04/26/22 2:25 PM) Normal [facility] Auto SS Urobilinogen Qn (U) 0.0254324 {Shan'U}/dL Normal 0.0 - 1.0 EU/dL [facility] UA Auto SS WBC Auto Ql (U) Negative (04/26/22 2:25 PM) Normal Negative [facility] Auto SS WBC LM.HPF (Urine sed) [#/Area] 0-5 /HPF Normal 0-5/HPF [facility] UA Auto SS PSA, FREE AND TOTAL RATIOon 03-10-2022 % Free PSA 17.9 % Normal [facility] Comment on above: Result Comment: The table below lists the probability of prostate cancer for men with non-suspicious STEVEN results and total PSA between 4 and 10 ng/mL, by patient age (Ev et al, BERYL 1998, 279:1542). % Free PSA 50-64 yr 65-75 yr 0.00-10.00% 56% 55% 10.01-15.00% 24% 35% 15.01-20.00% 17% 23% 20.01-25.00% 10% 20% >25.00% 5% 9% Please note: Ev et al did not make specific recommendations regarding the use of percent free PSA for any other population of men. Performed By: #### P SAFREE #### [facility] [address] [place] [address] Dr. Ronald Shaw Prostate specific Ag [Mass/Vol] 3.9 ng/mL Normal 0.0-4.0 [facility] Comment on above: Result Comment: Mary COLÓN methodology. . According to the [place] [employer], Serum PSA should decrease and remain at undetectable levels after radical prostatectomy. The AUA defines biochemical recurrence as an initial PSA value 0.2 ng/mL or greater followed by a subsequent confirmatory PSA value 0.2 ng/mL or greater. Values obtained with different assay methods or kits cannot be used interchangeably. Results cannot be interpreted as absolute evidence of the presence or absence of malignant disease. Performed By: #### P SAFREE #### [facility] [address] [place] [address] Dr. Ronald Shaw PSA, Free 0.70 ng/mL Normal N/A [facility] Comment on above: Result Comment: Mary veliz ECLIA methodology. Performed By: #### P SAFREE #### [facility] [address] [place] [address] Dr. Ronald Shaw CBC AUTO DIFFon 03-09-2022 BASO # 0.0 103/ul Normal 0.0-0.1 [facility] Comment on above: Performed By: #### C BC #### [facility] [address] [place] [address] Dr. Ronald Shaw Basophils/100 WBC (Bld) 0.6 % Normal 0.2-2.0 [facility] Comment on above: Performed By: #### C BC #### [facility] [address] [place] [address] Dr. Ronald Shaw EO # 0.1 103/ul Normal 0.0-0.7 [facility] Comment on above: Performed By: #### C BC #### [facility] [address] [place] [address] Dr. Ronald Shaw Eosinophils/100 WBC (Bld) 3.6 % Normal 0.9-7.0 [facility] Comment on above: Performed By: #### C BC #### [facility] [address] [place] [address] Dr. Ronald Shaw Erythrocyte distribution width (RBC) [Ratio] 13.4 % Normal 11.0-15.0 [facility] Comment on above: Performed By: #### C BC #### [facility] [address] [place] [address] Dr. Ronald Shaw Hematocrit (Bld) [Volume fraction] 44.3 % Normal 42.0-54.0 [facility] Comment on above: Performed By: #### C BC #### [facility] [address] [place] [address] Dr. Ronald Shaw Hemoglobin (Bld) [Mass/Vol] 15.4 g/dL Normal 14.0-18.0 [facility] Comment on above: Performed By: #### C BC #### [facility] [address] [place] [address] Dr. Ronald Shaw IG # 0.02 10e3/ul Normal 0.00-0.03 [facility] Comment on above: Performed By: #### C BC #### [facility] [address] [place] [address] Dr. Ronald Shaw IG % 0.6 % Critically high 0.0-0.5 [facility] Comment on above: Performed By: #### C BC #### [facility] [address] [place] [address] Dr. Ronald Shaw LYMPH # 1.3 103/ul Normal 1.2-3.8 [facility] Comment on above: Performed By: #### C BC #### [facility] [address] [place] [address] Dr. Ronald Shaw Lymphocytes/100 WBC (Bld) 39.1 % Normal 20.5-60.0 [facility] Comment on above: Performed By: #### C BC #### [facility] [address] [place] [address] Dr. Ronald Shaw MANUAL DIFF REQ NO Normal [facility] Comment on above: Performed By: #### C BC #### [facility] [address] [place] [address] Dr. Ronald Shaw MCH (RBC) [Entitic mass] 32.6 pg Normal 25.9-34.0 [facility] Comment on above: Performed By: #### C BC #### [facility] [address] [address] [address] Ronald Shaw MCHC (RBC) [Mass/Vol] 34.8 g/dL Normal 29.9-35.2 [facility] Comment on above: Performed By: #### C BC #### [facility] [address] [address] [address] Ronald Shaw MCV (RBC) [Entitic vol] 93.9 fL Normal 80.0-94.0 [facility] Comment on above: Performed By: #### C BC #### [facility] [address] [place] [address] Dr. Ronald Shaw MONO # 0.4 103/ul Normal 0.3-0.8 [facility] Comment on above: Performed By: #### C BC #### [facility] [address] [place] [address] Dr. Ronald Shaw Monocytes/100 WBC (Bld) 11.8 % Normal 1.7-12.0 [facility] Comment on above: Performed By: #### C BC #### [facility] [address] [place] [address] Dr. Ronald Shaw NEUT # 1.5 103/ul Normal 1.4-6.5 [facility] Comment on above: Performed By: #### C BC #### [facility] [address] [place] [address] Dr. Ronald Shaw Neutrophils/100 WBC (Bld) 44.3 % Normal 43.0-75.0 [facility] Comment on above: Performed By: #### C BC #### [facility] [address] [place] [address] Dr. Ronald Shaw Platelet mean volume (Bld) [Entitic vol] 9.6 fL Normal 9.5-13.5 [facility] Comment on above: Performed By: #### C BC #### [facility] [address] [place] [address] Dr. Ronald Shaw PLT 145 103/ul Critically low 150-450 [facility] Comment on above: Performed By: #### C BC #### [facility] [address] [address] [address] Ronald Shaw RBC 4.72 106/ul Normal 4.70-6.10 [facility] Comment on above: Performed By: #### C BC #### [facility] [address] [address] [address] Ronald Shaw WBC 3.3 103/ul Critically low 4.0-11.0 [facility] Comment on above: Performed By: #### C BC #### [facility] [address] [address] [address] Ronald Shaw DIRECT LDLon 03-09-2022 Cholesterol in LDL [Mass/Vol] 110 mg/dL Normal [facility] Comment on above: Performed By: #### C MP, DLDL, LIPID, TSH #### [facility] [address] [address] [address] Ronald Shaw DLDL NORMAL SEE BELOW Normal [facility] Comment on above: Result Comment: <100 mg/dl OPTIMAL 100 - 129 mg/dl NEAR OR ABOVE OPTIMAL 130 - 159 mg/dl BORDERLINE HIGH 160 - 189 mg/dl HIGH >190 mg/dl VERY HIGH Performed By: #### C MP, DLDL, LIPID, TSH #### [facility] [address] [address] [address] Ronald Shaw FREE T4on 03-09-2022 Free T4 [Mass/Vol] 0.91 ng/dL Normal 0.78-2.19 [facility] Comment on above: Performed By: #### F T4 #### [facility] [address] [address] [address] Ronald Shaw GLYCOHEMOGLOBIN A1Con 2021 ADA RECOMMENDATION ADA THERAPEUTIC TARGET 6.0 - 7.0 ACTION SUGGESTED > 7.0 Normal [facility] Comment on above: Performed By: #### A 1C #### [facility] [address] [place] [address] Dr. Ronald Shaw Glucose [Mass/Vol] 255 mg/dL Normal [facility] Comment on above: Performed By: #### A 1C #### [facility] [address] [address] [address] Ronald Shaw HbA1c (Bld) [Mass fraction] 10.5 % Critically high <=6.0 [facility] Comment on above: Performed By: #### A 1C #### [facility] [address] [place] [address] Dr. Ronald Shaw LIPID PROFILEon 03-09-2022 CHOL-HDL RATIO NORM SEE BELOW Normal [facility] Comment on above: Result Comment: 3.3 - 4.4 LOW RISK 4.4 - 7.1 AVERAGE RISK 7.1 - 11.0 MODERATE RISK >11.0 HIGH RISK Performed By: #### C MP, DLDL, LIPID, TSH #### [facility] [address] [place] [address] Dr. Ronald Shaw Cholesterol [Mass/Vol] 210 mg/dL Critically high <=200 [facility] Comment on above: Performed By: #### C MP, DLDL, LIPID, TSH #### [facility] [address] [place] [address] Dr. Ronald Shaw Cholesterol in HDL [Mass/Vol] 34 mg/dL Critically low 40-60 [facility] Comment on above: Performed By: #### C MP, DLDL, LIPID, TSH #### [facility] [address] [place] [address] Dr. Ronald Shaw Cholesterol.total/Chol esterol in HDL [Mass ratio] 6.2 {ratio} Normal [facility] Comment on above: Performed By: #### C MP, DLDL, LIPID, TSH #### [facility] [address] [address] [address] Ronald Shaw HDL NORMAL > or = 60 mg/dl - LOW CARDIOVASCULAR RISK <40 mg/dl - HIGH CARDIOVASCULAR RISK Normal [facility] Comment on above: Performed By: #### C MP, DLDL, LIPID, TSH #### [facility] [address] [place] [address] Dr. Ronald Shaw Triglyceride [Mass/Vol] 528 mg/dL Critically high <=150 [facility] Comment on above: Performed By: #### C MP, DLDL, LIPID, TSH #### [facility] [address] [address] [address] Ronald Shaw VLDL CALC 105.6 mg/dL Normal [facility] Comment on above: Performed By: #### C MP, DLDL, LIPID, TSH #### [facility] [address] [address] [address] Ronald Shaw MICROALBUMIN, RAND URon 02-17 mALB <1.3 Normal <=30.0 [facility] Comment on above: Performed By: #### C MP, DLDL, LIPID, TSH #### [facility] [address] [address] [address] Ronald Shaw PROF 14(COMP METB)on 022 Albumin [Mass/Vol] 4.2 g/dL Normal 3.4-5.0 [facility] Comment on above: Performed By: #### C MP, DLDL, LIPID, TSH #### [facility] [address] [address] [address] Ronald Shaw Albumin/Globulin [Mass ratio] 1.2 {ratio} Normal [facility] Comment on above: Performed By: #### C MP, DLDL, LIPID, TSH #### [facility] [address] [address] [address] Ronald Shaw ALP [Catalytic activity/Vol] 92 U/L Normal 46-116 [facility] Comment on above: Performed By: #### C MP, DLDL, LIPID, TSH #### [facility] [address] [address] [address] Ronald Shaw ALT [Catalytic activity/Vol] 71 U/L Critically high 16-63 [facility] Comment on above: Performed By: #### C MP, DLDL, LIPID, TSH #### [facility] [address] [place] [address] Dr. Ronald Shaw Anion gap [Moles/Vol] 13.3 mmol/L Normal [facility] Comment on above: Performed By: #### C MP, DLDL, LIPID, TSH #### [facility] [address] [address] [address] Ronald Shaw AST [Catalytic activity/Vol] 44 U/L Critically high 15-37 [facility] Comment on above: Performed By: #### C MP, DLDL, LIPID, TSH #### [facility] [address] [address] [address] Ronald Shaw Bilirubin [Mass/Vol] 1.3 mg/dL Normal 0.2-1.3 [facility] Comment on above: Performed By: #### C MP, DLDL, LIPID, TSH #### [facility] [address] [address] [address] Ronald Shaw Calcium [Mass/Vol] 9.0 mg/dL Normal 8.5-10.1 [facility] Comment on above: Performed By: #### C MP, DLDL, LIPID, TSH #### [facility] [address] [place] [address] Dr. Ronald Shaw Chloride [Moles/Vol] 97 mmol/L Critically low 98-107 [facility] Comment on above: Performed By: #### C MP, DLDL, LIPID, TSH #### [facility] [address] [address] [address] Ronald Shaw CO2 [Moles/Vol] 29.1 mmol/L Normal 22.0-30.0 [facility] Comment on above: Performed By: #### C MP, DLDL, LIPID, TSH #### [facility] [address] [place] [address] Dr. Ronald Shaw Creatinine [Mass/Vol] 1.03 mg/dL Normal 0.66-1.25 [facility] Comment on above: Performed By: #### C MP, DLDL, LIPID, TSH #### [facility] [address] [place] [address] Dr. Ronald Shaw EGFR-AF CHILEAN >60 Normal >=60 [facility] Comment on above: Performed By: #### C MP, DLDL, LIPID, TSH #### [facility] [address] [address] [address] Ronald Shaw EGFR-NON AF CHILEAN >60 Normal >=60 [facility] Comment on above: Performed By: #### C MP, DLDL, LIPID, TSH #### [facility] [address] [address] [address] Ronald Shaw Globulin (S) [Mass/Vol] 3.5 g/dL Normal [facility] Comment on above: Performed By: #### C MP, DLDL, LIPID, TSH #### [facility] [address] [address] [address] Ronald Shaw Glucose [Mass/Vol] 383 mg/dL Critically high 74-106 [facility] Comment on above: Performed By: #### C MP, DLDL, LIPID, TSH #### [facility] [address] [place] [address] Dr. Ronald Shaw Potassium [Moles/Vol] 4.4 mmol/L Normal 3.4-5.0 [facility] Comment on above: Performed By: #### C MP, DLDL, LIPID, TSH #### [facility] [address] [place] [address] Dr. Ronald Shaw Protein [Mass/Vol] 7.7 g/dL Normal 6.1-8.2 [facility] Comment on above: Performed By: #### C MP, DLDL, LIPID, TSH #### [facility] [address] [place] [address] Dr. Ronald Shaw Sodium [Moles/Vol] 135 mmol/L Critically low 137-145 [facility] Comment on above: Performed By: #### C MP, DLDL, LIPID, TSH #### [facility] [address] [place] [address] Dr. Ronald Shaw Urea nitrogen [Mass/Vol] 22.0 mg/dL Critically high 7.0-18.0 [facility] Comment on above: Performed By: #### C MP, DLDL, LIPID, TSH #### [facility] [address] [place] [address] Dr. Ronald Shaw Urea nitrogen/Creatinine [Mass ratio] 21.4 mg/mg Normal [facility] Comment on above: Performed By: #### C MP, DLDL, LIPID, TSH #### [facility] [address] [place], [place] [address] Dr. Ronald Shaw TSHon 03-09-2022 TSH 3.559 uIU/mL Normal 0.470-4.680 [facility] Comment on above: Performed By: #### C MP, DLDL, LIPID, TSH #### [facility] [address] [place], [place] [address] Dr. Ronald Shaw TSH RANGE SEE BELOW Normal [facility] Comment on above: Result Comment: <0.3 4 UIU/ml HYPERTHYROID 0.34-5.60 UIU/ml EUTHYROID >5.60 UIU/ml HYPOTHYROID Performed By: #### C MP, DLDL, LIPID, TSH #### [facility] [address] [place], [place] [address] Dr. Ronald Shaw MRI Knee w/o Lefton 12-25-19 MRI Knee w/o Left HISTORY: Pain since a fall COMPARISON: None available TECHNIQUE: Multiplanar multisequence MRI of the left knee was performed without contrast. FINDINGS: Quadriceps and patellar tendons are intact. Small joint effusion. The anterior ligament and posterior cruciate ligament are intact. The medial collateral ligament, lateral collateral ligament, and popliteus myotendinous unit are intact. Horizontal tear of the anterior horn of the lateral meniscus. The posterior horn of the medial meniscus is somewhat small in size however a meniscus tear is not definitively identified. No well defined or measurable articular cartilage defect or subchondral bone marrow edema. Popliteal fossa structures are intact. 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 IMPRESSION: Horizontal tear of the anterior horn of the lateral meniscus. The posterior horn of the medial meniscus is somewhat small in size however a meniscus tear is not definitively identified. Correlation for history of prior partial meniscectomy recommended. Report reported and signed by David Conner on 12/26/2021 1413 Normal [facility] [employer] XR KNEE LT 4V or >on 021 XR KNEE LT 4V or > EXAM: Left knee HISTORY: Pain since a fall 5 days ago. TECHNIQUE: 4 views of the left knee were obtained. FINDINGS: There is no evidence of fracture or dislocation. There are no suspicious bone lesions. There are mild degenerative changes. Soft tissues are normal. IMPRESSION: Unremarkable exam. Electronically authenticated by: TAWNYA JETER Date: 2021-10-25 10:59 Normal [facility] FREE T4on 08-04-2021 Free T4 [Mass/Vol] 0.81 ng/dL Normal 0.78-2.19 [facility] Comment on above: Performed By: #### C MP, DLDL, LIPID, TSH #### [facility] [address] [place] [address] Dr. Ronald Shaw TSHon 08-04-2021 TSH 2.816 uIU/mL Normal 0.470-4.680 [facility] Comment on above: Performed By: #### T SH #### [facility] [address] [place] [address] Dr. Ronald Shaw TSH RANGE SEE BELOW Normal [facility] Comment on above: Result Comment: <0.3 4 UIU/ml HYPERTHYROID 0.34-5.60 UIU/ml EUTHYROID >5.60 UIU/ml HYPOTHYROID Performed By: #### T SH #### [facility] [address] [place] [address] Dr. Ronald Shaw CBC AUTO DIFFon 05-19-2021 BASO # 0.0 103/ul Normal 0.0-0.1 [facility] Comment on above: Performed By: #### C MP, DLDL, LIPID, TSH #### [facility] [address] [place] [address] Dr. Ronald Shaw Basophils/100 WBC (Bld) 0.6 % Normal 0.2-2.0 [facility] Comment on above: Performed By: #### C MP, DLDL, LIPID, TSH #### [facility] [address] [place] [address] Dr. Ronald Shaw EO # 0.2 103/ul Normal 0.0-0.7 [facility] Comment on above: Performed By: #### C MP, DLDL, LIPID, TSH #### [facility] [address] [place] [address] Dr. Ronald Shaw Eosinophils/100 WBC (Bld) 5.7 % Normal 0.9-7.0 [facility] Comment on above: Performed By: #### C MP, DLDL, LIPID, TSH #### [facility] [address] [place] [address] Dr. Ronald Shaw Erythrocyte distribution width (RBC) [Ratio] 13.8 % Normal 11.0-15.0 [facility] Comment on above: Performed By: #### C MP, DLDL, LIPID, TSH #### [facility] [address] [place] [address] Dr. Ronald Shaw Hematocrit (Bld) [Volume fraction] 41.7 % Critically low 42.0-54.0 [facility] Comment on above: Performed By: #### C MP, DLDL, LIPID, TSH #### [facility] [address] [place] [address] Dr. Ronald Shaw Hemoglobin (Bld) [Mass/Vol] 14.8 g/dL Normal 14.0-18.0 [facility] Comment on above: Performed By: #### C MP, DLDL, LIPID, TSH #### [facility] [address] [place] [address] Dr. Ronald Shaw IG # 0.00 10e3/ul Normal 0.00-0.03 [facility] Comment on above: Performed By: #### C MP, DLDL, LIPID, TSH #### [facility] [address] [place] [address] Dr. Ronald Shaw IG % 0.0 % Normal 0.0-0.5 [facility] Comment on above: Performed By: #### C MP, DLDL, LIPID, TSH #### [facility] [address] [place] [address] Dr. Ronald Shaw LYMPH # 1.3 103/ul Normal 1.2-3.8 [facility] Comment on above: Performed By: #### C MP, DLDL, LIPID, TSH #### [facility] [address] [place] [address] Dr. Ronald Shaw Lymphocytes/100 WBC (Bld) 42.2 % Normal 20.5-60.0 [facility] Comment on above: Performed By: #### C MP, DLDL, LIPID, TSH #### [facility] [address] [address] [address] Ronald Shaw MANUAL DIFF REQ NO Normal [facility] Comment on above: Performed By: #### C MP, DLDL, LIPID, TSH #### [facility] [address] [address] [address] Ronald Shaw MCH (RBC) [Entitic mass] 34.3 pg Critically high 25.9-34.0 [facility] Comment on above: Performed By: #### C MP, DLDL, LIPID, TSH #### [facility] [address] [address] [address] Ronald Shaw MCHC (RBC) [Mass/Vol] 35.5 g/dL Critically high 29.9-35.2 [facility] Comment on above: Performed By: #### C MP, DLDL, LIPID, TSH #### [facility] [address] [address] [address] Ronald Shaw MCV (RBC) [Entitic vol] 96.5 fL Critically high 80.0-94.0 [facility] Comment on above: Performed By: #### C MP, DLDL, LIPID, TSH #### [facility] [address] [place] [address] Dr. Ronald Shaw MONO # 0.5 103/ul Normal 0.3-0.8 [facility] Comment on above: Performed By: #### C MP, DLDL, LIPID, TSH #### [facility] [address] [place] [address] Dr. Ronald Shaw Monocytes/100 WBC (Bld) 14.6 % Critically high 1.7-12.0 [facility] Comment on above: Performed By: #### C MP, DLDL, LIPID, TSH #### [facility] [address] [place] [address] Dr. Ronald Shaw NEUT # 1.2 103/ul Critically low 1.4-6.5 [facility] Comment on above: Performed By: #### C MP, DLDL, LIPID, TSH #### [facility] [address] [address] [address] Ronald Shaw Neutrophils/100 WBC (Bld) 36.9 % Critically low 43.0-75.0 [facility] Comment on above: Performed By: #### C MP, DLDL, LIPID, TSH #### [facility] [address] [address] [address] Ronald Shaw Platelet mean volume (Bld) [Entitic vol] 10.5 fL Normal 9.5-13.5 [facility] Comment on above: Performed By: #### C MP, DLDL, LIPID, TSH #### [facility] [address] [address] [address] Ronald Shaw PLT 137 103/ul Critically low 150-450 [facility] Comment on above: Performed By: #### C MP, DLDL, LIPID, TSH #### [facility] [address] [place] [address] Dr. Ronald Shaw RBC 4.32 106/ul Critically low 4.70-6.10 [facility] Comment on above: Performed By: #### C MP, DLDL, LIPID, TSH #### [facility] [address] [address] [address] Ronald Shaw WBC 3.2 103/ul Critically low 4.0-11.0 [facility] Comment on above: Performed By: #### C MP, DLDL, LIPID, TSH #### [facility] [address] [place] [address] Dr. Ronald Shaw GLYCOHEMOGLOBIN A1Con 2020 ADA RECOMMENDATION ADA THERAPEUTIC TARGET 6.0 - 7.0 ACTION SUGGESTED > 7.0 Normal [facility] Comment on above: Performed By: #### C MP, DLDL, LIPID, TSH #### [facility] [address] [place] [address] Dr. Ronald Shaw Glucose [Mass/Vol] 140 mg/dL Normal [facility] Comment on above: Performed By: #### C MP, DLDL, LIPID, TSH #### [facility] [address] [place] [address] Dr. Ronald Shaw HbA1c (Bld) [Mass fraction] 6.5 % Critically high <=6.0 [facility] Comment on above: Performed By: #### C MP, DLDL, LIPID, TSH #### [facility] [address] [place] [address] Dr. Ronald Shaw LIPID PROFILEon 05-19-2021 CHOL-HDL RATIO NORM SEE BELOW Normal [facility] Comment on above: Result Comment: 3.3 - 4.4 LOW RISK 4.4 - 7.1 AVERAGE RISK 7.1 - 11.0 MODERATE RISK >11.0 HIGH RISK Performed By: #### C MP, DLDL, LIPID, TSH #### [facility] [address] [place] [address] Dr. Ronald Shaw Cholesterol [Mass/Vol] 202 mg/dL Critically high <=200 [facility] Comment on above: Performed By: #### C MP, DLDL, LIPID, TSH #### [facility] [address] [place] [address] Dr. Ronald Shaw Cholesterol in HDL [Mass/Vol] 35 mg/dL Normal [facility] Comment on above: Performed By: #### C MP, DLDL, LIPID, TSH #### [facility] [address] [place] [address] Dr. Ronald Shaw Cholesterol in LDL [Mass/Vol] 133.2 mg/dL Normal [facility] Comment on above: Performed By: #### C MP, DLDL, LIPID, TSH #### [facility] [address] [place] [address] Dr. Ronald Shaw Cholesterol.total/Chol esterol in HDL [Mass ratio] 5.8 {ratio} Normal [facility] Comment on above: Performed By: #### C MP, DLDL, LIPID, TSH #### [facility] [address] [place] [address] Dr. Ronald Shaw HDL NORMAL > or = 60 mg/dl - LOW CARDIOVASCULAR RISK <40 mg/dl - HIGH CARDIOVASCULAR RISK Normal [facility] Comment on above: Performed By: #### C MP, DLDL, LIPID, TSH #### [facility] [address] [place] [address] Dr. Ronald Shaw LDL CALC NORMAL SEE BELOW Normal [facility] Comment on above: Result Comment: <100 mg/dl OPTIMAL 100 - 129 mg/dl NEAR OR ABOVE OPTIMAL 130 - 159 mg/dl BORDERLINE HIGH 160 - 189 mg/dl HIGH >190 mg/dl VERY HIGH Performed By: #### C MP, DLDL, LIPID, TSH #### [facility] [address] [address] [address] Ronald Shaw Triglyceride [Mass/Vol] 169 mg/dL Critically high <=150 [facility] Comment on above: Performed By: #### C MP, DLDL, LIPID, TSH #### [facility] [address] [place] [address] Dr. Ronald Shaw VLDL CALC 33.8 mg/dL Normal [facility] Comment on above: Performed By: #### C MP, DLDL, LIPID, TSH #### [facility] [address] [place] [address] Dr. Ronald Shaw MICROALBUMIN, RAND URon 07-0 mALB 2.0 mg/L Normal <=30.0 [facility] Comment on above: Performed By: #### M ALBR #### [facility] [address] [place] [address] Pito Kumari PROF 14(COMP METB)on 021 Albumin [Mass/Vol] 4.0 g/dL Normal 3.5-5.0 [facility] Comment on above: Performed By: #### C MP, DLDL, LIPID, TSH #### [facility] [address] [place] [address] Dr. Ronald Shaw Albumin/Globulin [Mass ratio] 1.2 {ratio} Normal [facility] Comment on above: Performed By: #### C MP, DLDL, LIPID, TSH #### [facility] [address] [place] [address] Dr. Ronald Shaw ALP [Catalytic activity/Vol] 53 U/L Normal 38-126 [facility] Comment on above: Performed By: #### C MP, DLDL, LIPID, TSH #### [facility] [address] [address] [address] Ronald Shaw ALT [Catalytic activity/Vol] 63 U/L Normal 21-72 [facility] Comment on above: Performed By: #### C MP, DLDL, LIPID, TSH #### [facility] [address] [address] [address] Ronald Shaw Anion gap [Moles/Vol] 13.3 mmol/L Normal [facility] Comment on above: Performed By: #### C MP, DLDL, LIPID, TSH #### [facility] [address] [address] [address] Ronald Shaw AST [Catalytic activity/Vol] 49 U/L Normal 17-59 [facility] Comment on above: Performed By: #### C MP, DLDL, LIPID, TSH #### [facility] [address] [place] [address] Dr. Ronald Shaw Bilirubin [Mass/Vol] 0.9 mg/dL Normal 0.2-1.3 [facility] Comment on above: Performed By: #### C MP, DLDL, LIPID, TSH #### [facility] [address] [address] [address] Ronald Shaw Calcium [Mass/Vol] 8.8 mg/dL Normal 8.4-10.2 [facility] Comment on above: Performed By: #### C MP, DLDL, LIPID, TSH #### [facility] [address] [address] [address] Ronald Shaw Chloride [Moles/Vol] 104 mmol/L Normal 98-107 [facility] Comment on above: Performed By: #### C MP, DLDL, LIPID, TSH #### [facility] [address] [address] [address] Ronald Shaw CO2 [Moles/Vol] 29.8 mmol/L Normal 22.0-30.0 [facility] Comment on above: Performed By: #### C MP, DLDL, LIPID, TSH #### [facility] [address] [address] [address] Ronald Shaw Creatinine [Mass/Vol] 1.03 mg/dL Normal 0.66-1.25 [facility] Comment on above: Performed By: #### C MP, DLDL, LIPID, TSH #### [facility] [address] [place] [address] Dr. Ronald Shaw EGFR-AF CHILEAN >60 Normal >=60 [facility] Comment on above: Performed By: #### C MP, DLDL, LIPID, TSH #### [facility] [address] [address] [address] Ronald Shaw EGFR-NON AF CHILEAN >60 Normal >=60 [facility] Comment on above: Performed By: #### C MP, DLDL, LIPID, TSH #### [facility] [address] [place] [address] Dr. Ronald Shaw Globulin (S) [Mass/Vol] 3.3 g/dL Normal [facility] Comment on above: Performed By: #### C MP, DLDL, LIPID, TSH #### [facility] [address] [place] [address] Dr. Ronald Shaw Glucose [Mass/Vol] 156 mg/dL Critically high 74-106 [facility] Comment on above: Performed By: #### C MP, DLDL, LIPID, TSH #### [facility] [address] [place] [address] Dr. Ronald Shaw Potassium [Moles/Vol] 4.1 mmol/L Normal 3.4-5.0 [facility] Comment on above: Performed By: #### C MP, DLDL, LIPID, TSH #### [facility] [address] [place] [address] Dr. Ronald Shaw Protein [Mass/Vol] 7.3 g/dL Normal 6.1-8.2 [facility] Comment on above: Performed By: #### C MP, DLDL, LIPID, TSH #### [facility] [address] [place] [address] Dr. Ronald Shaw Sodium [Moles/Vol] 143 mmol/L Normal 137-145 [facility] Comment on above: Performed By: #### C MP, DLDL, LIPID, TSH #### [facility] [address] [address] [address] Ronald Shaw Urea nitrogen [Mass/Vol] 16.0 mg/dL Normal 9.0-20.0 [facility] Comment on above: Performed By: #### C MP, DLDL, LIPID, TSH #### [facility] [address] [place] [address] Dr. Ronald Shaw Urea nitrogen/Creatinine [Mass ratio] 15.5 mg/mg Normal [facility] Comment on above: Performed By: #### C MP, DLDL, LIPID, TSH #### [facility] [address] [place] [address] Dr. Ronald Shaw T4on 05-19-2021 T4 [Mass/Vol] 4.30 ug/dL Critically low 5.53-11.00 [facility] Comment on above: Performed By: #### C MP, DLDL, LIPID, TSH #### [facility] [address] [place] [address] Dr. Ronald Shaw TSHon 05-19-2021 TSH 9.302 uIU/mL Critically high 0.470-4.680 [facility] Comment on above: Performed By: #### C MP, DLDL, LIPID, TSH #### [facility] [address] [place] [address] Dr. Ronald Shaw TSH RANGE SEE BELOW Normal [facility] Comment on above: Result Comment: <0.3 4 UIU/ml HYPERTHYROID 0.34-5.60 UIU/ml EUTHYROID >5.60 UIU/ml HYPOTHYROID Performed By: #### C MP, DLDL, LIPID, TSH #### [facility] [address] [place] [address] Dr. Ronald Shaw URIC ACID SERUMon 05-19-2021 Urate [Mass/Vol] 4.5 mg/dL Normal 3.5-8.5 [facility] Comment on above: Performed By: #### C MP, DLDL, LIPID, TSH #### [facility] [address] [place] [address] Dr. Ronald Shaw Vital Signs Date Time Vital Sign Value Performing Clinician Facility 05-26-2024 09:53-0400 Body height 167.64 cm [facility] 05-26-2024 09:53-0400 Body mass index (BMI) [Ratio] 37.5 kg/m2 [place] 05-26-2024 09:53-0400 Body weight 105.68 kg [facility] 05-26-2024 09:53-0400 Diastolic blood pressure 92 mm[Hg] [place] 05-26-2024 09:53-0400 Heart rate 73 /min [facility] 05-26-2024 09:53-0400 Systolic blood pressure 174 mm[Hg] [place] 09-19-2023 11:45-0400 Body height 167.64 cm Flaquita Turner Other [employer] [facility] [employer] Other 09-19-2023 11:45-0400 Body mass index (BMI) [Ratio] 37.67 kg/m2 Flaquita Turner Other [employer] [facility] [employer] Other 09-19-2023 11:45-0400 Body weight 105.87 kg Flaquita Turner Other [email or web address] Other 09-19-2023 11:45-0400 Diastolic blood pressure 88 mm[Hg] Flaquita Turner Other [employer] Other 09-19-2023 11:45-0400 Systolic blood pressure 162 mm[Hg] Flaquita Turner Other [facility] [employer] Other 08-28-2023 10:08-0400 Body weight 105.68 kg MD Flaquita Turner Work Phone: [place] 08-28-2023 10:08-0400 Diastolic blood pressure 86 mm[Hg] MD Flaquita Turner Work Phone: [place] 08-28-2023 10:08-0400 Heart rate 77 /min MD Flaquita Turner Work Phone: [place] 08-28-2023 10:08-0400 Respiratory rate 18 /min MD Flaquita Turner Work Phone: [place] 08-28-2023 10:08-0400 SaO2% (BldA) [Mass fraction] 97 % MD Flaquita Turner Work Phone: [place] 08-28-2023 10:08-0400 Systolic blood pressure 169 mm[Hg] MD Flaquita Turner Work Phone: [place] 07-10-2023 09:45-0400 Body height 167.64 cm Flaquita Turner Other [facility] [employer] Other 07-10-2023 09:45-0400 Body mass index (BMI) [Ratio] 38.09 kg/m2 Flaquita Turner Other [email or web address] Other 07-10-2023 09:45-0400 Body weight 107.05 kg Flaquita Turner Other [employer] Other 07-10-2023 09:45-0400 Diastolic blood pressure 69 mm[Hg] Flaquita Turner Other [employer] Other 07-10-2023 09:45-0400 Systolic blood pressure 165 mm[Hg] Flaquita Turner Other [employer] Other 06-04-2023 08:30-0400 Body height 167.64 cm Flaquita Turner Other [employer] Other 06-04-2023 08:30-0400 Body mass index (BMI) [Ratio] 37.76 kg/m2 Flaquita Turner Other [employer] Other 06-04-2023 08:30-0400 Body weight 106.14 kg Flaquita Turner Other [employer] Other 06-04-2023 08:30-0400 Diastolic blood pressure 96 mm[Hg] Flaquita Turner Other [facility] [employer] Other 06-04-2023 08:30-0400 Systolic blood pressure 164 mm[Hg] Flaquita Turner Other [facility] [employer] Other 05-28-2023 13:05-0400 Body weight 107.5 kg MD Flaquita Turner Work Phone: [place] 05-28-2023 13:05-0400 Diastolic blood pressure 78 mm[Hg] MD Flaquita Turner Work Phone: [place] 05-28-2023 13:05-0400 Heart rate 78 /min MD Flaquita Turner Work Phone: [place] 05-28-2023 13:05-0400 Respiratory rate 18 /min MD Flaquita Turner Work Phone: [place] 05-28-2023 13:05-0400 SaO2% (BldA) [Mass fraction] 98 % MD Flaquita Turner Work Phone: [place] 05-28-2023 13:05-0400 Systolic blood pressure 170 mm[Hg] MD Flaquita Turner Work Phone: [place] 02-11-2023 08:51-0400 Body temperature 98.1 [degF] MD Flaquita Turner Work Phone: [place] 11-01-2022 11:07-0500 Body height 170.18 cm MD Flaquita Turner Work Phone: [place] 11-01-2022 11:07-0500 Body temperature 98.1 [degF] MD Flaquita Turner Work Phone: [place] 11-01-2022 11:07-0500 Body weight 105.7 kg MD Flaquita Turner Work Phone: [place] 11-01-2022 11:07-0500 Diastolic blood pressure 67 mm[Hg] MD Flaquita Turner Work Phone: [place] 11-01-2022 11:07-0500 Heart rate 69 /min MD Flaquita Turner Work Phone: [place] 11-01-2022 11:07-0500 Respiratory rate 18 /min MD Flaquita Turner Work Phone: [place] 11-01-2022 11:07-0500 SaO2% (BldA) [Mass fraction] 98 % MD Flaquita Turner Work Phone: [place] 11-01-2022 11:07-0500 Systolic blood pressure 148 mm[Hg] MD Flaquita Turner Work Phone: [place] 07-10-2022 09:10-0400 Diastolic blood pressure 65 mm[Hg] MD Flaquita Turner Work Phone: [place] 07-10-2022 09:10-0400 Heart rate 68 /min MD Flaquita Turner Work Phone: [place] 07-10-2022 09:10-0400 Respiratory rate 16 /min MD Flaquita Turner Work Phone: [place] 07-10-2022 09:10-0400 SaO2% (BldA) [Mass fraction] 95 % MD Flaquita Turner Work Phone: [place] 07-10-2022 09:10-0400 Systolic blood pressure 124 mm[Hg] MD Flaquita Turner Work Phone: [place] 07-10-2022 08:29-0400 Body height 170.18 cm MD Flaquita Turner Work Phone: [place] 07-10-2022 08:29-0400 Body mass index (BMI) [Ratio] 36.8 kg/m2 MD Flaquita Turner Work Phone: [place] 07-10-2022 08:29-0400 Body weight 106.59 kg MD Flaquita Turner Work Phone: [place] 07-10-2022 05:50-0400 Body temperature 98 [degF] MD Flaquita Turner Work Phone: [place] 07-04-2022 10:31-0400 Body temperature 98.4 [degF] MD Flaquita Turner Work Phone: [facility] 07-04-2022 10:31-0400 Body weight 107.45 kg MD Flaquita Turner Work Phone: [place] 07-04-2022 10:31-0400 Diastolic blood pressure 98 mm[Hg] MD Flaquita Turner Work Phone: [place] 07-04-2022 10:31-0400 Heart rate 71 /min MD Flaquita Turner Work Phone: [place] 07-04-2022 10:31-0400 Respiratory rate 16 /min MD Flaquita Turner Work Phone: [place] 07-04-2022 10:31-0400 SaO2% (BldA) [Mass fraction] 98 % MD Flaquita Turner Work Phone: [place] 07-04-2022 10:31-0400 Systolic blood pressure 170 mm[Hg] MD Flaquita Turner Work Phone: [place] 06-27-2022 08:43-0400 Body height 170.18 cm MD Flaquita Turner Work Phone: [place] 06-13-2022 09:40-0400 Blood Pressure Location Elzbieta Lue [facility] 06-13-2022 09:40-0400 Diastolic blood pressure 87 mm[Hg] Elzbieta Lue [facility] 06-13-2022 09:40-0400 Heart rate 80 /min Elzbieta Lue [facility] 06-13-2022 09:40-0400 Respiratory rate 16 /min Elzbieta Lue [facility] 06-13-2022 09:40-0400 Systolic blood pressure 152 mm[Hg] Elzbieta Lue [facility] 05-29-2022 11:34-0400 Blood Pressure Location Elzbieta Lue [facility] 05-29-2022 11:34-0400 Diastolic blood pressure 88 mm[Hg] Elzbieta Lue [facility] 05-29-2022 11:34-0400 Heart rate 65 /min Elzbieta Lue [facility] 05-29-2022 11:34-0400 Mean blood pressure 112 mm[Hg] Elzbieta Lue [facility] 05-29-2022 11:34-0400 Respiratory rate 18 /min Elzbieta Lue [facility] 05-29-2022 11:34-0400 SaO2% (BldA) [Mass fraction] 95 % Elzbieta Lue [facility] 05-29-2022 11:34-0400 Systolic blood pressure 161 mm[Hg] Elzbieta Lue [facility] 05-29-2022 11:34-0400 Body temperature 97.7 [degF] Elzbieta Lue [facility] 05-29-2022 10:34-0400 Blood Pressure Location Elzbieta Lue [facility] 05-29-2022 10:34-0400 Diastolic blood pressure 88 mm[Hg] Elzbieta Lue [facility] 05-29-2022 10:34-0400 Heart rate 64 /min Elzbieta Lue [facility] 05-29-2022 10:34-0400 Mean blood pressure 108 mm[Hg] Elzbieta Lue [facility] 05-29-2022 10:34-0400 Respiratory rate 24 /min Elzbieta Lue [facility] 05-29-2022 10:34-0400 SaO2% (BldA) [Mass fraction] 95 % Elzbieta Lue [facility] 05-29-2022 10:34-0400 Systolic blood pressure 148 mm[Hg] Elzbieta Lue [facility] 05-29-2022 10:34-0400 Body temperature 97.52 [degF] Elzbieta Lue [facility] 05-29-2022 10:25-0400 Body temperature 97.34 [degF] Elzbieta Lue [facility] 05-29-2022 10:25-0400 Diastolic blood pressure 72 mm[Hg] Elzbieta Lue [facility] 05-29-2022 10:25-0400 Heart rate 66 /min Elzbieta Lue [facility] 05-29-2022 10:25-0400 Respiratory rate 19 /min Elzbieta Lue [facility] 05-29-2022 10:25-0400 SaO2% (BldA) [Mass fraction] 95 % Elzbieta Lue [facility] 05-29-2022 10:25-0400 Systolic blood pressure 142 mm[Hg] Elzbieta Lue [facility] 05-29-2022 10:15-0400 Respiratory rate 23 /min Elzbieta Lue [facility] 05-29-2022 10:10-0400 Respiratory rate 18 /min Elzbieta Lue [facility] 05-29-2022 09:50-0400 Respiratory rate 0 /min Elzbieta Lue [facility] 05-29-2022 06:24-0400 Blood Pressure Location Elzbieta Lue [facility] 05-29-2022 06:24-0400 Mean blood pressure 115 mm[Hg] Elzbieta Lue [facility] 05-29-2022 06:08-0400 Body temperature 98.24 [degF] Elzbieta Lue [facility] 05-29-2022 06:08-0400 Heart rate 72 /min Elzbieta Lue [facility] 04-26-2022 14:18-0400 Body temperature 98.24 [degF] Elzbieta Lue [facility] 04-26-2022 14:18-0400 Diastolic blood pressure 96 mm[Hg] Elzbieta Lue [facility] 04-26-2022 14:18-0400 Heart rate 82 /min Elzbieta Lue [facility] 04-26-2022 14:18-0400 Mean blood pressure 122 mm[Hg] Elzbieta Lue [facility] 04-26-2022 14:18-0400 Respiratory rate 20 /min Elzbieta Lue [facility] 04-26-2022 14:18-0400 SaO2% (BldA) [Mass fraction] 97 % Elzbieta Lue [facility] 04-26-2022 14:18-0400 Systolic blood pressure 174 mm[Hg] Elzbieta Lue [facility] 04-26-2022 14:18-0400 Blood Pressure Location Elzbieta Lue [facility] 04-26-2022 14:18-0400 Diastolic blood pressure 88 mm[Hg] Elzbieta Lue [facility] 04-26-2022 14:18-0400 Systolic blood pressure 177 mm[Hg] Elzbieta Lue [facility] 04-25-2022 08:30-0400 Blood Pressure Location Elzbieta Lue [facility] 04-25-2022 08:30-0400 Diastolic blood pressure 93 mm[Hg] Elzbieta Lue [facility] 04-25-2022 08:30-0400 Heart rate 84 /min Elzbieta Lue [facility] 04-25-2022 08:30-0400 Systolic blood pressure 148 mm[Hg] Elzbieta Lue [facility] Encounters Encounter Date Encounter Type Care Provider Facility Start: 05-26-2024 End: 05-26-2024 [facility] Work Phone: Start: 05-26-2024 End: 05-26-2024 Patient encounter procedure [facility] Work Phone: Start: 01-27-2024 ambulatory Haydenchristineender Shabnam RenteriaRickey Melissa lity:[place] Start: 12-16-2023 End: 12-16-2023 ambulatory Flaquita Turner Other [email or web address] Other Start: 12-16-2023 Telephone encounter Flaquita Turner [facility] Start: 10-17-2023 (Televisit) Televisit Flaquita Aviles [facility] Start: 10-17-2023 End: 10-17-2023 ambulatory Flaquita Turner Other [email or web address] Other Start: 09-19-2023 End: 09-19-2023 ambulatory Flaquita Turner Other [email or web address] Other Start: 09-19-2023 Office outpatient vi sit 15 minutes Flaquita Turner [facility] Start: 08-28-2023 End: 08-28-2023 ambulatory MD Flaquita Turner Work Phone: [facility] Work Phone: Start: 08-28-2023 End: 08-28-2023 Registered Recurring MD Flaquita Turner Work Phone: [facility] Work Phone: Start: 07-25-2023 End: 07-25-2023 ambulatory Flaquita Turner Other [email or web address] Other Start: 07-25-2023 Telephone encounter Flaquita Turner [facility] Start: 07-10-2023 End: 07-10-2023 ambulatory Flaquita Turner Other [email or web address] Other Start: 07-10-2023 Office outpatient vi sit 15 minutes Flaquita Turner [facility] Start: 06-20-2023 End: 06-20-2023 ambulatory Flaquita Turner Other [email or web address] Other Start: 06-20-2023 Telephone encounter Flaquita Turner [facility] Start: 06-04-2023 End: 06-04-2023 ambulatory Flaquita Turner Other [facility] [employer] Other Start: 06-04-2023 Patient encounter procedure Flaquita Turner [facility] Start: 05-28-2023 End: 05-28-2023 ambulatory MD Flaquita Turner Work Phone: [facility] Work Phone: Start: 05-28-2023 End: 05-28-2023 Registered Recurring MD Flaquita Turner Work Phone: [facility] Work Phone: Start: 11-01-2022 End: 11-01-2022 ambulatory MD Flaquita Turner Work Phone: [facility] Work Phone: Start: 11-01-2022 End: 11-01-2022 Registered Recurring MD Flaquita Turner Work Phone: [facility] Start: 07-10-2022 End: 07-10-2022 Admission to same day surgery center MD Flaquita Turner Work Phone: [facility] [place] Start: 07-06-2022 End: 07-06-2022 Patient encounter procedure MD Flaquita Turner Work Phone: [facility] Start: 07-04-2022 End: 07-04-2022 Registered Recurring MD Flaquita Turner Work Phone: [facility] Start: 06-13-2022 End: 06-13-2022 Patient encounter procedure Elzbieta Perez [facility] Start: 05-29-2022 End: 05-29-2022 Admission to same day surgery center Elzbieta Perez [facility] Start: 05-25-2022 Adult health examination Flaquita Turner Other [email or web address] Other Start: 05-01-2022 Problem, abnormal examination Flaquitakristine Turner Other [email or web address] Other Start: 04-26-2022 End: 04-26-2022 Patient encounter procedure Elzbieta Perez [facility] Start: 04-25-2022 End: 04-25-2022 Patient encounter procedure Elzbieta Perez [facility] Start: 03-14-2022 End: 03-14-2022 Patient encounter procedure Elzbieta Perez [facility] Start: 03-09-2022 End: 03-10-2022 ambulatory ELZBIETA PEREZ . Facility:[facility] Start: 10-25-2021 End: 10-25-[address] FLAQUITA TURNER Facility:[facility] Start: 08-04-2021 End: 08-05-[address] FLAQUITA TURNER Facility:[facility] Start: 05-19-2021 End: 05-20-[address] FLAQUITA TURNER Facility:[facility] Start: 08-26-2020 End: 08-26-2020 Chart abstracting Vaibhav Dash Work Phone: Hematology/Oncology Start: 08-26-2020 End: 08-26-2020 Patient encounter procedure External Provider [facility] Start: 08-26-2020 Results Only External Provider Exter nal-NonCCF Procedures Date Procedure Procedure Detail Performing Clinician Start: 08-25-2022 MR prostate wo/w con MD Flaquita Turner Work Phone: Start: 07-10-2022 OR Space OAR (Not Applicable) MD Flaquita Turner Work Phone: Start: 05-29-2022 MRI guided biopsy of prostate Elzbieta Lue Start: 08-04-[address] FLAQUITA TURNER Comment on above: Performed By: #### C MP, DLDL, LIPID, TSH #### [facility] [address] [place] [address] Dr. Ronald Shaw Start: 08-26-2020 EXTERNAL LAB External P rovider Start: 02-23-2019 Screening for malign ant neoplasm of prostate Flaquita Yue Other Start: 12-30-2017 Screening for malign ant neoplasm of colon Flaquita Yue Other Start: 12-03-2013 General examination of patient Flaquita Yue Other Appendectomy Elzbieta Lue Cataract (morphologi c abnormality) Elzbieta Lue Cataract (morphologi c abnormality) Elzbieta Lue Comment on above: ritika eyes Colonoscopy Elzbieta Lue History of operative procedure on knee Elzbieta Lue Screening for malign ant neoplasm of prostate Flaquita Yue Other Plan of Treatment Date Care Activity Detail Author Start: 07-12-2022 Registered Recurring Prostate cancer [facility] Start: 07-12-2022 MR prostate wo/w con MR prostate wo/ w con [place] Start: 07-10-2022 End: 07-10-2022 [facility] Work Phone: Start: 07-10-2022 OR Space OAR (Not Applicable) OR Space OAR (Not Applicable) [place] Start: 07-10-2022 End: 07-10-2022 Admission to same day surgery center Departed Surgical Day Care [facility] [place] Start: 07-19-2020 Influenza vaccination INFLUENZA (#1) [facility] Start: 2020 ADVANCE DIRECTIVE DISCUSSION ADVANCE DIRECTIVE DISCUSSION [facility] Start: 2020 PNEUMOVAX AGE 65 AND OVER WITH 5YR LOOKBACK (#1) PNEUMOVAX AGE 65 AND OVER WITH 5YR LOOKBACK (#1) [facility] Start: 2010 PROSTATE CANCER SCRE ENING DISCUSSION PROSTATE CANCER SCREENING DISCUSSION [facility] Start: 2005 SHINGRIX VACCINE (1 of 2) HERRERA GRIX VACCINE (1 of 2) [facility] Start: 2005 Tuberculosis screening COLOREC KEANU CANCER SCREENING,SEE MODIFIER [facility] Start: 2000 DIABETES SCREEN DIABETES SCREEN [facility] Start: 1990 LIPID SCREEN LIPID SCREEN [facility] Start: 1974 Urine microalbumin profile DTAP,TDAP,TD (1 - Tdap) [facility] Start: 1973 HEPATITIS C SCREENING HEPATITIS C SC REENING [facility] Start: 1973 HIV SCREENING HIV SCREENING [facility] metabo lic 2000 panel - Serum or Plasma [place] Computed tomography for radiotherapy planning [facility] Work Phone: Computed tomography for radiotherapy planning [place] Microalbumin [Mass/volume] in Urine [place] Patient Education How to Use an Enema [facility] Work Phone: Patient referral [facility] Work Phone: PT Skull base to mid-thigh [facility] Work Phone: PT Skull base to mid-thigh [facility] Immunizations Immunization Date Immunization Notes Care Provider Elzbieta vogel 03-16-2021 COVID-19 Vaccine Pfizer - Documentation Purposes Only Flaquita Turner Other [place] 02-16-2021 SARS-CoV-2 (COVID-19 ) Ad26 vaccine, recombinant Elzbieta Perez [facility] 01-16-2021 SARS-CoV-2 (COVID-19 ) Ad26 vaccine, recombinant Elzbieta Perez [facility] 05-19-2020 pneumococcal conjuga te vaccine, 13 valent Flaquita Turner Other [place] NEGATED: Highlighted row has not occurred!04-25-2022 influenza virus vaccine, unspecified formulation Elzbieta Perez [facility] Payers Date Payer Category Payer Self-pay [id number] 2020 Medicare UHC AARP MEDICAR E UHC AARP MEDICARE PPO [id number] 2020-Present PPO [id number] 1959 Unknown [id number] 1955 Unknown [id number] 1955 Unknown [id number] 1955 Unknown [id number] [id number] 1955 Unknown [id number] 1955 Unknown [id number] Medicare Medicare [id number] Private Health Insurance [facility] [id number] Unknown [id number] Social History Date Type Detail Facility Start: 08-26-2020 End: 07-10-2022 Tobacco smoking status NHIS Unknown if ever smoked [place] Sex Assigned At Not on file [facility] Start: 09-13-2021 End: 01-27-2024 Tobacco smoking status Never smoked tobacco (finding) [facility] Sex Assigned At Male [facility] Start: 04-26-2022 End: 06-13-2022 Tobacco smoking status Never [facility] Start: 1955 Sex Assigned At Male F [facility] Medical Equipment Procedure Code Equipment Code Equipment Origin al Text Equipment Identifier Dates Radiotherapy protection spacer [id number] FDA Start: 07-10-2022 Imaging lesion localization marker, implantable [id number] FDA Start: 07-10-2022 Goals Date Patient Goal Desired Activity /State Functional Status Date Assessment Result Facility 06-13-2022 Functional Status N/A [facility] Clinical Notes 03-14-2022 to 10-17-2023 Note Date & Type Note Facility 10-17-2023 Evaluation note Encounter Date Diagnosis Assessment Notes Sep, Other specified bacterial agents as the cause of diseases classified elsewhere (ICD-10 - B96.89) Sep, Acute sinusitis, unspecified (ICD-10 - J01.90) ACUTE SINUSITIS, UNSPECIFIED Sinus infections can be triggered by a secondary infection from a viral URI or even seasonal allergies. Take medications as directed. Use saline nasal spray prior to presciption nasal spray. Take medications as directed, and complete all doses of medication even if you start to feel better. Patient advised to follow up with PCP if symptoms persist or worsen. Patient verbalized understanding and agreement with treatment plan. [email or web address] Other 11-02-2023 Evaluation note* Encounter Date Diagnosis Assessment Notes Treatment Notes Treatment Clinical Notes Sep, Allergic contact dermatitis, unspecified trigger (ICD-10 - L23.9) Advised he changed to all Free and clear from [employer]. Sep, Type 2 diabetes mellitus with hyperglycemia, without long-term current use of insulin (ICD-10 - E11.65) We will check A1c today. Patient states Tradjenta is too expensive. We will assess lab results and consider changing medication to something preferred on his formulary. [email or web address] Other 08-23-2023 Evaluation note* Encounter Date Diagnosis Assessment Notes Treatment Notes Treatment Clinical Notes Jun, Allergic contact dermatitis, unspecified trigger (ICD-10 - L23.9) Start above as directed. Take the steroid with food. Advised of potential s/e. Can take OTC Benadryl prn for itching, cautioned may cause drowsiness. Calamine lotion prn. [email or web address] Other 07-18-2023 Evaluation note* Encounter Date Diagnosis Assessment Notes Treatment Notes Treatment Clinical Notes May, Medicare annual wellness visit, subsequent (ICD-10 - Z00.00) Personalized health advice was given to the beneficiary including a written plan for screenings discussed and provided. Advanced care planning reviewed and/or information given as requested. Additional counseling was provided here today in regards to, [ ]. The above visit was performed by myself. May, Essential (primary) hypertension (ICD-10 - I10) Blood pressure is elevated. Will increase dose of med. Denies cardiac symptoms. Shows no signs or symptoms or poor control. Patient to continue with above medication and we will continue to monitor. Advised to pay attention to body and symptoms. Any developing patterns. Stay well hydrated. May, Type 2 diabetes mellitus with hyperglycemia, without long-term current use of insulin (ICD-10 - E11.65) Chronic problem. Home glucose readings good. Due for labs. May, Mixed hyperlipidemia (ICD-10 - E78.2) chronic problem, due for labs. May, Chronic idiopathic gout involving toe without tophus, unspecified laterality (ICD-10 - M1A.0790) Monitor uric acid - no recent flares. May, Hypothyroidism (acquired) (ICD-10 - E03.9) Chronic problem. due for labs. [email or web address] Other 07-11-2023 Progress note Author Jaaj Lang [place] May 28, 2023 1:18pm Note Date/Time May 28, 2023 9:55 am [facility] [place] [address] Rad Onc Follow Up Note - OP Signed Patient: Wilfredo Chappell MR#: [id number] : 1955 Acct:[id number] Age/Sex: 67 / M Type: REG RCR Copies to: MD Flaquita Landry MD~ Date of Service Service Date: 05/28/23 Assessment & Plan (1) Prostate cancer Plan: Return to clinic Aug 2023 with repeat PSA. 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 Technically he met Unfavorable criteria with 8 cores positive however patient did not under go PSMA PET as he moved it out until after his treatment and it was subsequently cancelled. His multi parametric MRI which showed organ confined disease with no concern for lymphadenopathy nor bone involvement. On August 03, 2022 he completed prostate SBRT to a dose of 37 Neal in 5 fractions delivered every other day. Posttreatment PSA Oct 2022 1.Jan 1.27 April 2023 2.25 - repeated today, 2.3 We discussed the implications of the bump in PSA. This is likely a PSA bounce we will continue to monitor as patient is asymptomatic. We will plan on seeing him back in August 2023. Patient was counseled on activities to avoid prior toPSA draw. Follow Up Note - Narrative 67-year-old male who has been under the care of urology secondary to BPH with urinary obstruction and ongoing nocturia. He was found to have an elevated PSA in February 2022 of 3.9. PSA history: February 2022 3.26 May 2022 2.88 Jul 2021 3.February 2.February 2.39 March 30, 2022 Multi parametric MRI of the prostate 2 prostate volume be 41 mL. There is a focal T2 hypointensity in the posterior aspect of the left peripheralzone measuring 6 mm. There is additional focus of T2 hypointensity in the lateral aspect of the left peripheral zone measuring 6 mm. There were BPH changes. There was no evidence of lymphadenopathy. May 29, 2022 MRI fusion biopsy showed 10 of 12 cores positive Hennessey 3+4 equal7 in 8cores (6 on the left and 2 on the right) and Hennessey 3+3 equal 6 in 2 cores on the right. At consult: AUA 3. Quality of life mostly satisfied. MARY is 3 consistent with severe erectile dysfunction. August 03, 2022 patient completed definitive SBRT to the prostate to a dose of 37 Neal in 5 fractions delivered every other day. He tolerated his treatmentwell and had no significant urinary complaints. He utilized tamsulosin 0.4 mg each evening. Posttreatment PSA Oct 2022 1.Jan 1.10 AUA 1 with stable nocturia 1 times a night. Quality of lifeis pleased MARY is 0. April 2023 2.25 repeated 05/28/23 and returned 2.3 Today, AUA is 7 with nocturia 2 times a night. Patient states that he has no change in his urinary symptoms despite the elevated PSA. Everything is fine denies dysuria. Quality of life mostly satisfied MARY is 0. He has no pelvic nor bowel complaints. Physical Exam General: alert and oriented male in no acute distress HEENT: normocephalic, extra ocular movements intact Lungs: normal work of breathing on room air Abdomen: non acute MSK: extremities within normal limits Neuro: grossly intact Dictated By: Jaja Lang MD DD/ [id number] Signed By: <Electronically signed by Jaja Lang MD> 05/28/23 1312 [facility] Work Phone: 1(177) 482-106607-11-2023 Progress note Author Jaja Lang [place] May 28, 2023 1:18pm Note Date/Time May 28, 2023 9:55 am [facility] [place] [address] Rad Onc Follow Up Note - OP Signed Patient: Wilfredo Chappell MR#: [id number] : 1955 Acct:[id number] Age/Sex: 67 / M Type: REG RCR Copies to: MD Flaquita Landry MD~ Date of Service Service Date: 05/28/23 Assessment & Plan (1) Prostate cancer Plan: Return to clinic Aug 2023 with repeat PSA. 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 Technically he met Unfavorable criteria with 8 cores positive however patient did not under go PSMA PET as he moved it out until after his treatment and it was subsequently cancelled. His multi parametric MRI which showed organ confined disease with no concern for lymphadenopathy nor bone involvement. On August 03, 2022 he completed prostate SBRT to a dose of 37 Neal in 5 fractions delivered every other day. Posttreatment PSA Oct 2022 1.Jan 1.27 April 2023 2.25 - repeated today, 2.3 We discussed the implications of the bump in PSA. This is likely a PSA bounce we will continue to monitor as patient is asymptomatic. We will plan on seeing him back in August 2023. Patient was counseled on activities to avoid prior toPSA draw. Follow Up Note - Narrative 67-year-old male who has been under the care of urology secondary to BPH with urinary obstruction and ongoing nocturia. He was found to have an elevated PSA in February 2022 of 3.9. PSA history: February 2022 3.26 May 2022 2.88 Jul 2021 3.February 2.February 2.39 March 30, 2022 Multi parametric MRI of the prostate 2 prostate volume be 41 mL. There is a focal T2 hypointensity in the posterior aspect of the left peripheralzone measuring 6 mm. There is additional focus of T2 hypointensity in the lateral aspect of the left peripheral zone measuring 6 mm. There were BPH changes. There was no evidence of lymphadenopathy. May 29, 2022 MRI fusion biopsy showed 10 of 12 cores positive Hennessey 3+4 equal7 in 8cores (6 on the left and 2 on the right) and Mily 3+3 equal 6 in 2 cores on the right. At consult: AUA 3. Quality of life mostly satisfied. MARY is 3 consistent with severe erectile dysfunction. August 03, 2022 patient completed definitive SBRT to the prostate to a dose of 37 Neal in 5 fractions delivered every other day. He tolerated his treatmentwell and had no significant urinary complaints. He utilized tamsulosin 0.4 mg each evening. Posttreatment PSA Oct 2022 1.Jan 1.10 AUA 1 with stable nocturia 1 times a night. Quality of lifeis pleased MARY is 0. April 2023 2.25 repeated 05/28/23 and returned 2.3 Today, AUA is 7 with nocturia 2 times a night. Patient states that he has no change in his urinary symptoms despite the elevated PSA. Everything is fine denies dysuria. Quality of life mostly satisfied MARY is 0. He has no pelvic nor bowel complaints. Physical Exam General: alert and oriented male in no acute distress HEENT: normocephalic, extra ocular movements intact Lungs: normal work of breathing on room air Abdomen: non acute MSK: extremities within normal limits Neuro: grossly intact Dictated By: Jaja Lang MD DD/ [id number] Signed By: <Electronically signed by Jaja Lang MD> 05/28/23 1318 [facility] Work Phone: 1(255) 831-879403-27-2023 Progress note Author Jaja Lang [place] February 11, 2023 9:13am Note Date/Time February 11, 2023 8:3 4am [facility] [place] [address] Rad Onc Follow Up Note - OP Signed Patient: Wilfredo Chappell MR#: [id number] : 1955 Acct:[id number] Age/Sex: 67 / M Type: REG RCR Copies to: MD Flaquita Landry MD~ Date of Service Service Date: 02/11/23 Assessment & Plan (1) Prostate cancer Plan: Return to clinic May 2023 with PSA Assessment: 67-year-old male with 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 Technically he met Unfavorable criteria with 8 cores positive however patient did not under go PSMA PET as he moved it out until after his treatment and it was subsequently cancelled. His multi parametric MRI which showed organ confined disease with no concern for lymphadenopathy nor bone involvement. On August 03, 2022 he completed prostate SBRT to a dose of 37 Neal in 5 fractions delivered every other day. Posttreatment PSA Oct 2022 1.Jan 1.10 Patient continues to do extremely well with no urinary nor bowel complaints. I am pleased with his progress and PSA response. We will see him back in 3 monthsfor routine surveillance of PSA Follow Up Note - Narrative 67-year-old male who has been under the care of urology secondary to BPH with urinary obstruction and ongoing nocturia. He was found to have an elevated PSA in February 2022 of 3.9. PSA history: July 2021 3.May 2.February 2.February 2.39 March 30, 2022 Multi parametric MRI of the prostate 2 prostate volume be 41 mL. There is a focal T2 hypointensity in the posterior aspect of the left peripheralzone measuring 6 mm. There is additional focus of T2 hypointensity in the lateral aspect of the left peripheral zone measuring 6 mm. There were BPH changes. There was no evidence of lymphadenopathy. May 29, 2022 MRI fusion biopsy showed 10 of 12 cores positive Mily 3+4 equal7 in 8cores (6 on the left and 2 on the right) and Hennessey 3+3 equal 6 in 2 cores on the right. At consult: AUA 3. Quality of life mostly satisfied. MARY is 3 consistent with severe erectile dysfunction. August 03, 2022 patient completed definitive SBRT to the prostate to a dose of 37 Neal in 5 fractions delivered every other day. He tolerated his treatmentwell and had no significant urinary complaints. He utilized tamsulosin 0.4 mg each evening. Posttreatment PSA Oct 2022 1.Jan 1.10 Today is doing well. Off tamsulosin. AUA is 1 with stable nocturia 1 times a night. Quality of life is pleased MAYR is 0. He has no pelvic nor bowel complaints. Physical Exam General: alert and oriented male in no acute distress HEENT: normocephalic, extra ocular movements intact Lungs: normal work of breathing on room air Abdomen: non acute MSK: extremities within normal limits Neuro: grossly intact Dictated By: Jaja Lang MD DD/ 2 Signed By: <Electronically signed by Jaja Lang MD> 02/11/23 0913 [facility] Work Phone: 1(659) 477-580912-15-2022 Progress note Author Jaja Lang [place] November 01, 2022 11:18am Note Date/Time November 01, 2022 9:07am [facility] [place] [address] Rad Onc Follow Up Note - OP Signed Patient: Wilfredo Chappell MR#: [id number] : 1955 Acct:[id number] Age/Sex: 67 / M Type: REG RCR Copies to: MD Flaquita Landry MD~ Date of Service Service Date: 11/01/22 Assessment & Plan (1) Prostate cancer Plan: Return to clinic January 2023 with PSA Assessment: 67-year-old male with intermediate risk adenocarcinoma of the prostate with Hennessey 3+4 equal 7 disease in 8 cores on biopsy, iPSA 3.9 ng/ml, predominantly on left, with 2 cores Mily 6. Technically he met Unfavorable criteria with 8 cores positive however patient did not under go PSMA PET as he moved it out until after his treatment and it was subsequently cancelled. His multi parametric MRI which showed organ confined disease with no concern for lymphadenopathy nor bone involvement. On August 03, 2022 he completed prostate SBRT to a dose of 37 Neal in 5 fractions delivered every other day. Patient returns to clinic today for his first posttreatment PSA. October 29 PSA returned 1.76. I am pleased with his progress he is urinating well we discussed stopping the tamsulosin the patient is agreeable. We will see him back in 3 months for routine surveillance of PSA Follow Up Note - Narrative 67-year-old male who has been under the care of urology secondary to BPH with urinary obstruction and ongoing nocturia. He was found to have an elevated PSA in February 2022 of 3.9. PSA history: July 2021 3.May 2.February 2.February 2.39 March 30, 2022 Multi parametric MRI of the prostate 2 prostate volume be 41 mL. There is a focal T2 hypointensity in the posterior aspect of the left peripheralzone measuring 6 mm. There is additional focus of T2 hypointensity in the lateral aspect of the left peripheral zone measuring 6 mm. There were BPH changes. There was no evidence of lymphadenopathy. May 29, 2022 MRI fusion biopsy showed 10 of 12 cores positive Mily 3+4 equal7 in 8cores (6 on the left and 2 on the right) and Mily 3+3 equal 6 in 2 cores on the right. At consult. AUA 3. Quality of life mostly satisfied. MARY is 3 consistent with severe erectile dysfunction. August 03, 2022 patient completed definitive SBRT to the prostate to a dose of 37 Neal in 5 fractions delivered every other day. He tolerated his treatmentwell and had no significant urinary complaints. He utilized tamsulosin 0.4 mg each evening. Spoke to patient today via phone. He denies any significant urinary nor bowel issues. He states he feels exactly as he did prior to the radiation treatment. Patient returns to clinic today for his first posttreatment PSA. October 29 PSA returned 1.76. Today is doing well. AUA is 2 with stable nocturia 3 times a night. Quality oflife is pleased MARY is 3 Physical Exam General: alert and oriented male in no acute distress HEENT: normocephalic, extra ocular movements intact Lungs: normal work of breathing on room air Abdomen: non acute MSK: extremities within normal limits Neuro: grossly intact Dictated By: Jaja Lang MD DD/ 5 Signed By: <Electronically signed by Jaja Lang MD> 11/01/22 1118 [facility] Work Phone: 1([phone]) 880-586812-15-2022 Progress note Author Jaja Lang [place] November 01, 2022 11:18am Note Date/Time November 01, 2022 9:07am [facility] [place] [id number] Rad Onc Follow Up Note - OP Signed Patient: Wilfredo Chappell MR#: [id number] : 1955 Acct:[id number] Age/Sex: 67 / M Type: REG RCR Copies to: MD Flaquita Landry MD~ Date of Service Service Date: 11/01/22 Assessment & Plan (1) Prostate cancer Plan: Return to clinic January 2023 with PSA Assessment: 67-year-old male with intermediate risk adenocarcinoma of the prostate with Hennessey 3+4 equal 7 disease in 8 cores on biopsy, iPSA 3.9 ng/ml, predominantly on left, with 2 cores Mily 6. Technically he met Unfavorable criteria with 8 cores positive however patient did not under go PSMA PET as he moved it out until after his treatment and it was subsequently cancelled. His multi parametric MRI which showed organ confined disease with no concern for lymphadenopathy nor bone involvement. On August 03, 2022 he completed prostate SBRT to a dose of 37 Neal in 5 fractions delivered every other day. Patient returns to clinic today for his first posttreatment PSA. October 29 PSA returned 1.76. I am pleased with his progress he is urinating well we discussed stopping the tamsulosin the patient is agreeable. We will see him back in 3 months for routine surveillance of PSA Follow Up Note - Narrative 67-year-old male who has been under the care of urology secondary to BPH with urinary obstruction and ongoing nocturia. He was found to have an elevated PSA in February 2022 of 3.9. PSA history: July 2021 3.May 2.February 2.February 2.39 March 30, 2022 Multi parametric MRI of the prostate 2 prostate volume be 41 mL. There is a focal T2 hypointensity in the posterior aspect of the left peripheralzone measuring 6 mm. There is additional focus of T2 hypointensity in the lateral aspect of the left peripheral zone measuring 6 mm. There were BPH changes. There was no evidence of lymphadenopathy. May 29, 2022 MRI fusion biopsy showed 10 of 12 cores positive Hennessey 3+4 equal7 in 8cores (6 on the left and 2 on the right) and Mily 3+3 equal 6 in 2 cores on the right. At consult. AUA 3. Quality of life mostly satisfied. MARY is 3 consistent with severe erectile dysfunction. August 03, 2022 patient completed definitive SBRT to the prostate to a dose of 37 Neal in 5 fractions delivered every other day. He tolerated his treatmentwell and had no significant urinary complaints. He utilized tamsulosin 0.4 mg each evening. Spoke to patient today via phone. He denies any significant urinary nor bowel issues. He states he feels exactly as he did prior to the radiation treatment. Patient returns to clinic today for his first posttreatment PSA. October 29 PSA returned 1.76. Today is doing well. AUA is 2 with stable nocturia 3 times a night. Quality oflife is pleased MARY is 3 Physical Exam General: alert and oriented male in no acute distress HEENT: normocephalic, extra ocular movements intact Lungs: normal work of breathing on room air Abdomen: non acute MSK: extremities within normal limits Neuro: grossly intact Dictated By: Jaja Lang MD DD/ 5 Signed By: <Electronically signed by Jaja Lang MD> 11/01/22 111 [facility] Work Phone: 1(242) 475-503111-11-2022 Progress note Author Jaja Lang [place] September 28, 2022 5:17pm Note Date/Time August 29, 2022 1 0:54am [facility] [place] [address] Rad Onc Follow Up Note - OP Signed with Addenda Patient: Wilfredo Chappell MR#: [id number] : 1955 Acct:[id number] Age/Sex: 67 / M Type: REG RCR Copies to: MD Flaquita Landry MD~ ADDENDUM1 Correction: Date of Service 08/30/22 Addendum Dictated By: Jaja Lang MD Addendum Signed By: 09/28/221716 Addendum Cosigned By: DD/ /09/1717 TD/TT: 09/28/2210/09/1717 Date of Service Service Date: 08/29/22 Assessment & Plan (1) Prostate cancer Plan: Return to clinic 2 months with first posttreatment PSA. 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 Technically he met Unfavorable criteria with 8 cores positive however patient did not under go PSMA PET as he moved it out until after his treatment and it was subsequently cancelled. His multi parametric MRI which showed organ confined disease with no concern for lymphadenopathy nor bone involvement. On August 03, 2022 he completed prostate SBRT to a dose of 37 Neal in 5 fractions delivered every other day. [place] by phone today and patient is asymptomatic. He has no urinary nor bowel complaints. I am pleased with his progress. He continues on the tamsulosin. 10-minute follow-up Follow Up Note - Narrative 67-year-old male who has been under the care of urology secondary to BPH with urinary obstruction and ongoing nocturia. He was found to have an elevated PSA in February 2022 of 3.9. PSA history: July 2021 3.73 June 06 22.February 2.February 2.39 March 30, 2022 Multi parametric MRI of the prostate 2 prostate volume be 41 mL. There is a focal T2 hypointensity in the posterior aspect of the left peripheralzone measuring 6 mm. There is additional focus of T2 hypointensity in the lateral aspect of the left peripheral zone measuring 6 mm. There were BPH changes. There was no evidence of lymphadenopathy. May 29, 2022 MRI fusion biopsy showed 10 of 12 cores positive Hennessey 3+4 equal7 in 8cores (6 on the left and 2 on the right) and Hennessey 3+3 equal 6 in 2 cores on the right. At consult. AUA 3. Quality of life mostly satisfied. MARY is 3 consistent with severe erectile dysfunction. August 03, 2022 patient completed definitive SBRT to the prostate to a dose of 37 Neal in 5 fractions delivered every other day. He tolerated his treatmentwell and had no significant urinary complaints. He utilized tamsulosin 0.4 mg each evening. Spoke to patient today via phone. He denies any significant urinary nor bowel issues. He states he feels exactly as he did prior to the radiation treatment. Dictated By: Jaja Lang MD DD/ 1057 Signed By: <Electronically signed by Jaja Lang MD> 08/30/22 1054 [facility] Work Phone: 1([phone]) 755-320911-07-2022 Progress note Author Jaja Lang [place] September 24, 2022 6:47pm Note Date/Time July 03, 2022 12 :59pm [facility] at [address] [address] Rad Onc Follow Up Note - OP Signed with Addenda Patient: Wilfredo Chappell MR#: [id number] : 1955 Acct:[id number] Age/Sex: 67 / M Type: REG RCR Copies to: MD Flaquita Landry MD~ ADDENDUM1 Correction: Date of Service 07/04/22 Addendum Dictated By: Jaja Lang MD Addendum Signed By: 09/24/221846 Addendum Cosigned By: DD/ /08/1847 TD/TT: 09/24/2206/08/1847 Date of Service Service Date: 07/03/22 Assessment & Plan (1) Prostate cancer Plan: PSMA Pet pending Proceed to OR at 730 on July 10 for fiducial and hydrogel placement- bowel prep reviewed Return to clinic July 12 at [address] and repeat prostate MRI fortreatment planning-bowel prep reviewed Planned for SBRT to the prostate 37 Neal in 5 fractions delivered every other day Continue tamsulosin 0.4 mg nightly Assessment: 67-year-old male with newly diagnosed unfavorable 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 We reviewed the results of his multi parametric MRI which shows organ confined disease with no concern for lymphadenopathy nor bone involvement. He is plannedfor SBRT to a dose of 37 Neal in 5 fractions delivered every other day. He denies any significant change in urination with the tamsulosin. We reviewed the need for bowel prep for both his OR visit scheduled for the as well as for a CT simulation scheduled for 12 July. I provided a general overview of fiducial and hydrogel placement. Short and long-term side effects were also reviewed. Patient's questions were answered. He was consented to receive care. He will proceed to his presurgical testing on Saturday and understands he will need to arrive early for surgery on Saturday the . His PSMA PET is pending Follow Up Note - Narrative 67-year-old male who has been under the care of urology secondary to BPH with urinary obstruction and ongoing nocturia. He was found to have an elevated PSA in February 2022 of 3.9. PSA history: July 2021 3.73 June 06 22.February 2.February 2.39 March 30, 2022 Multi parametric MRI of the prostate 2 prostate volume be 41 mL. There is a focal T2 hypointensity in the posterior aspect of the left peripheralzone measuring 6 mm. There is additional focus of T2 hypointensity in the lateral aspect of the left peripheral zone measuring 6 mm. There were BPH changes. There was no evidence of lymphadenopathy. May 29, 2022 MRI fusion biopsy showed 10 of 12 cores positive Hennessey 3+4 equal7 in 8cores (6 on the left and 2 on the right) and Hennessey 3+3 equal 6 in 2 cores on the right. Patient presents for education regarding bowel prep and his procedure scheduled for next week. He is up-to-date on his colonoscopy last one was 5 years ago. He has stable nocturia 2 times per night depending on his fluid intake. AUA is 3. Quality of life is mostly satisfied to MARY is 3 consistent with severe erectile dysfunction. Physical Exam General: alert and oriented male in no acute distress HEENT: normocephalic, extra ocular movements intact Lungs: normal work of breathing on room air Abdomen: non acute MSK: extremities within normal limits Neuro: grossly intact Dictated By: Jaja Lang MD DD/ 1258 Signed By: <Electronically signed by Jaja Lang MD> 07/04/22 1111 [facility] Work Phone: [phone]) 754-403508-23-2022 [place]-16-2022 Progress note Author Jaja Lang [place] July 04, 2022 11:11am Note Date/Time July 03, 2022 12 :59pm [facility] at [address] [address] Rad Onc Follow Up Note - OP Signed Patient: Wilfredo Chappell MR#: [id number] : 1955 Acct:[id number] Age/Sex: 67 / M Type: REG RCR Copies to: MD Flaquita Landry MD~ Date of Service Service Date: 07/03/22 Assessment & Plan (1) Prostate cancer Plan: PSMA Pet pending Proceed to OR at 730 on July 10 for fiducial and hydrogel placement- bowel prep reviewed Return to clinic July 12 at [address] simulation and repeat prostate MRI fortreatment planning-bowel prep reviewed Planned for SBRT to the prostate 37 Neal in 5 fractions delivered every other day Continue tamsulosin 0.4 mg nightly Assessment: 67-year-old male with 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 We reviewed the results of his multi parametric MRI which shows organ confined disease with no concern for lymphadenopathy nor bone involvement. He is plannedfor SBRT to a dose of 37 Neal in 5 fractions delivered every other day. He denies any significant change in urination with the tamsulosin. We reviewed the need for bowel prep for both his OR visit scheduled for the as well as for a CT simulation scheduled for 12 July. I provided a general overview of fiducial and hydrogel placement. Short and long-term side effects were also reviewed. Patient's questions were answered. He was consented to receive care. He will proceed to his presurgical testing on Saturday and understands he will need to arrive early for surgery on Saturday the . His PSMA PET is pending Follow Up Note - Narrative 67-year-old male who has been under the care of urology secondary to BPH with urinary obstruction and ongoing nocturia. He was found to have an elevated PSA in February 2022 of 3.9. PSA history: July 2021 3.73 June 06 22.February 2.February 2.39 March 30, 2022 Multi parametric MRI of the prostate 2 prostate volume be 41 mL. There is a focal T2 hypointensity in the posterior aspect of the left peripheralzone measuring 6 mm. There is additional focus of T2 hypointensity in the lateral aspect of the left peripheral zone measuring 6 mm. There were BPH changes. There was no evidence of lymphadenopathy. May 29, 2022 MRI fusion biopsy showed 10 of 12 cores positive Mily 3+4 equal7 in 8cores (6 on the left and 2 on the right) and Hennessey 3+3 equal 6 in 2 cores on the right. Patient presents for education regarding bowel prep and his procedure scheduled for next week. He is up-to-date on his colonoscopy last one was 5 years ago. He has stable nocturia 2 times per night depending on his fluid intake. AUA is 3. Quality of life is mostly satisfied to MARY is 3 consistent with severe erectile dysfunction. Physical Exam General: alert and oriented male in no acute distress HEENT: normocephalic, extra ocular movements intact Lungs: normal work of breathing on room air Abdomen: non acute MSK: extremities within normal limits Neuro: grossly intact Dictated By: Jaja Lang MD DD/ 1258 Signed By: <Electronically signed by Jaja Lang MD> 07/04/22 1111 [facility] Work Phone: [phone]) 628-210408-10-2022 Consult note Author Jaja Lang [place] June 27, 2022 9:29am Note Date/Time June 26, 2022 2:1 1pm [facility] [place] [address] Rad Onc Consult Note - OP Signed Patient: Wilfredo Chappell MR#: [id number] : 1955 Acct:[id number] Age/Sex: 67 / M Type: REG RCR Copies to: MD Flaquita Landry MD~ Assessment & Plan (1) Prostate cancer Plan: PSMA Pet to complete staging Schedule OR for fiducial and hydrogel placement 2 to 3 days after OR visit, schedule for CT simulation and repeat prostate MRI for treatment planning Plan for SBRT to the prostate 37 Neal in 5 fractions delivered every other day Start tamsulosin 0.4 mg nightly Assessment: 67-year-old male with 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 We reviewed the results of his multi parametric MRI which shows organ confined disease with no concern for lymphadenopathy nor bone involvement. AUA is 3 today and patient does not currently require medication for his BPH. Patient clinically has T2c disease with bilateral disease on pathology and greater than 50% of biopsy cores positive. Consequently the NCCN guidelines would recommend bone and soft tissue imaging and we will place an order for PSMA PET due to its increased sensitivity. Especially in light of the relatively low PSA for such high-volume disease. We a long conversation today and reviewed the implications of intermediate risk prostate cancer. Patient understands that options for treatment include surgeryor radiation. He has met with urology and declined surgical intervention. Consequently I recommend noninvasive management with SBRT to a dose of 37 Neal in 5 fractions delivered every other day. I provided a general overview of radiation treatment planning and delivery. We discussed the need for fiducial and hydrogel placement followed by CT simulation and repeat MRI prostate for treatment planning. Patient is up-to-date on his colonoscopies. Short and long-term side effects were reviewed in detail and his questions were answered. He was consented to receive care. Patient reports recent diagnosis of diabetes. He states his blood sugars range in the 1 40-1 60 range and he has been placed on medication. He was counseled at length regarding the risk of increased short and long-term toxicity toxicity seen with uncontrolled diabetes. He was counseled to work closely with his primary care physician to ensure blood sugars were normalized during his treatment course. He communicated his understanding. HPI Date of Service: 06/27/22 HPI: 67-year-old male who has been under the care of urology secondary to BPH with urinary obstruction and ongoing nocturia. He was found to have an elevated PSA in February 2022 of 3.9. PSA history: July 2021 3.73 June 06 22.February 2.February 2.39 March 30, 2022 Multi parametric MRI of the prostate 2 prostate volume be 41 mL. There is a focal T2 hypointensity in the posterior aspect of the left peripheralzone measuring 6 mm. There is additional focus of T2 hypointensity in the lateral aspect of the left peripheral zone measuring 6 mm. There were BPH changes. There was no evidence of lymphadenopathy. May 29, 2022 MRI fusion biopsy showed 10 of 12 cores positive Mily 3+4 equal7 in 8cores (6 on the left and 2 on the right) and Hennessey 3+3 equal 6 in 2 cores on the right. The patient is overall doing well. He has no significant urinary nor bowel complaints. He is up-to-date on his colonoscopy last one was 5 years ago. He has stable nocturia 2 times per night depending on his fluid intake. AUA is 3. Quality of life is mostly satisfied to MARY is 3 consistent with severe erectiledysfunction. [facility] - Medical History Medical History: Medical History (Last Updated 06/27/22 @ 08:03 by Bibi Perkins RN) BPH (benign prostatic hyperplasia) Diabetes Elevated PSA Gout Hypertension Hypothyroidism Nocturia Obesity Home Medications & Allergies Allergies No Known Allergies Allergy (Verified 06/27/22 08:10) Home Medications allopurinol 300 mg tablet 300 mg PO DAILY 06/27/22 [History Confirmed 06/27/22] esomeprazole magnesium 20 mg capsule,delayed release (Nexium) 20 mg PO DAILY 06/27/22 [History Confirmed 06/27/22] levothyroxine 137 mcg tablet (Synthroid) 137 mcg PO DAILY 06/27/22 [History Confirmed 06/27/22] linagliptin 5 mg tablet (Tradjenta) 5 mg PO DAILY 06/27/22 [History Confirmed 06/27/22] losartan 25 mg tablet 25 mg PO DAILY 06/27/22 [History Confirmed 06/27/22] metformin 750 mg tablet,extended release 24 hr 750 mg PO DAILY 06/27/22 [History Confirmed 06/27/22] tamsulosin 0.4 mg capsule (Flomax) 0.4 mg PO DAILY #90 caps 06/27/22 [Rx] Subjective ROS: I reviewed the 12-point Review of Systems with the patient as per our standard questionnaire. Objective Pain: 0/10 Karnofsky Performance Scale: 90%: Can perform normal activity, minor signs of disease Physical Exam: Physical Exam General: alert and oriented male in no acute distress HEENT: normocephalic, extra ocular movements intact Lungs: normal work of breathing on room air Abdomen: non acute. obese MSK: extremities within normal limits Neuro: grossly intact Dictated By: Jaja Lang MD DD/ 1408 Signed By: <Electronically signed by Jaja Lang MD> 06/27/22 4575 [facility] Work Phone: 1([phone]) 265-756007-27-2022 Hospital Discharge instructions Patient Education 06/13/2022 11:04:45 Prostate Cancer Prostate Cancer The prostate is a walnut-sized gland that is involved in the production of semen. It is located below a man's bladder, in front of the rectum. Prostate cancer is the abnormal growth of cells in the prostate gland. What are the causes? The exact cause of this condition is not known. What increases the risk? This condition is more likely to develop in men who: Are older than age 65. Are -[place]. Are obese. Have a family history of prostate cancer. Have a family history of breast cancer. What are the signs or symptoms? Symptoms of this condition include: A need to urinate often. Weak or interrupted flow of urine. Trouble starting or stopping urination. Inability to urinate. Pain or burning during urination. Painful ejaculation. Blood in urine or semen. Persistent pain or discomfort in the lower back, lower abdomen, hips, or upper thighs. Trouble getting an erection. Trouble emptying the bladder all the way. How is this diagnosed? This condition can be diagnosed with: A digital rectal exam. For this exam, a health care provider inserts a gloved finger into the rectum to feel the prostate gland. A blood test called a prostate-specific antigen (PSA) test. An imaging test called transrectal ultrasonography. A procedure in which a sample of tissue is taken from the prostate and examined under a microscope (prostate biopsy). Once the condition is diagnosed, tests will be done to determine how far the cancer has spread. This is called staging the cancer. Staging may involve imaging tests, such as: A bone scan. A CT scan. A PET scan. An MRI. The stages of prostate cancer are as follows: Stage I. At this stage, the cancer is found in the prostate only. The cancer is not visible on imaging tests and it is usually found by accident, such as during a prostate surgery. Stage II. At this stage, the cancer is more advanced than it is in stage I, but the cancer has not spread outside the prostate. Stage III. At this stage, the cancer has spread beyond the outer layer of the prostate to nearby tissues. The cancer may be found in the seminal vesicles, which are near the bladder and the prostate. Stage IV. At this stage, the cancer has spread other parts of the body, such as the lymph nodes, bones, bladder, rectum, liver, or lungs. How is this treated? Treatment for this condition depends on several factors, including the stage of the cancer, your age, personal preferences, and your overall health. Talk with your health care provider about treatment options that are recommended for you. Common treatments include: Observation for early stage prostate cancer (active surveillance). This involves having exams, blood tests, and in some cases, more biopsies. For some men, this is the only treatment needed. Surgery. Types of surgeries include: ?Open surgery. In this surgery, a larger incision is made to remove the prostate. ?A laparoscopic prostatectomy. This is a surgery to remove the prostate and lymph nodes through several, small incisions. It is often referred to as a minimally invasive surgery. ?A robotic prostatectomy. This is a surgery to remove the prostate and lymph nodes with the help ofa robotic arm that is controlled by a computer. ?Orchiectomy. This is a surgery to remove the testicles. ?Cryosurgery. This is a surgery to freeze and destroy cancer cells. Radiation treatment. Types of radiation treatment include: ?External beam radiation. This type aims beams of radiation from outside the body at the prostate to destroy cancerous cells. ?Brachytherapy. This type uses radioactive needles, seeds, wires, or tubes that are implanted into the prostate gland. Like external beam radiation, brachytherapy destroys cancerous cells. An advantage is that this type of radiation limits the damage to surrounding tissue and has fewer side effects. High-intensity, focused ultrasonography. This treatment destroys cancer cells by delivering high-energy ultrasound waves to the cancerous cells. Chemotherapy medicines. This treatment kills cancer cells or stops them from multiplying. Hormone treatment. This treatment involves taking medicines that act on one of the male hormones (testosterone): ?By stopping your body from producing testosterone. ?By blocking testosterone from reaching cancer cells. Follow these instructions at home: Take shfc-tti-ihicbho and prescription medicines only as told by your health care provider. Maintain a healthy diet. Get plenty of sleep. Consider joining a support group for men who have prostate cancer. Meeting with a support group mayhelp you learn to cope with the stress of having cancer. Keep all follow-up visits as told by your health care provider. This is important. If you have to go to the hospital, notify your cancer specialist (oncologist). Treatment for prostate cancer may affect sexual function. Continue to have intimate moments with your partner. This may include touching, holding, hugging, and caressing. Contact a health care provider if: You have trouble urinating. You have blood in your urine. You have pain in your hips, back, or chest. Get help right away if: You have weakness or numbness in your legs. You cannot control urination or your bowel movements (incontinence). You have trouble breathing. You have sudden chest pain. You have chills or a fever. Summary The prostate is a walnut-sized gland that is involved in the production of semen. It is located below a man's bladder, in front of the rectum. Prostate cancer is the abnormal growth of cells in the prostate gland. Treatment for this condition depends on several factors, including the stage of the cancer, your age, personal preferences, and your overall health. Talk with your health care provider about treatment options that are recommended for you. Consider joining a support group for men who have prostate cancer. Meeting with a support group mayhelp you learn to cope with the stress of having cancer. This information is not intended to replace advice given to you by your health care provider. Make sure you discuss any questions you have with your health care provider. Document Released: 11/04/2006 Document Revised: 10/17/2018 Document Reviewed: 07/15/2017 [employer] Patient Education 2020 [employer]. Follow Up Care 04/25/2022 10:53:31 With:Elzbieta Perez MD, URL, URO Address: When:2 to 4 weeks [facility] 07-12-2022 Evaluation + Plan noteExtracted from: Title:Post-anesthesia - General Author:Tony Singer DO Date:05/29/22 Plan Transfer/ Discharge: Condition stable. Extracted from: Title:EU- MRI fusion transpe rineal prostate biopsy Author:Elzbieta Perez MD Date:05/29/22 Impression and Plan Diagnosis Elevated PSA ([id number] R97.20, Discharge, Medical). Abnormal MRI, pelvis ([id number]-YJ R93.5, Working, Medical). Diagnosis Elevated PSA ([id number]-GD R97.20, Discharge, Medical). Abnormal MRI, pelvis ([id number]-BU R93.5, Working, Medical). Counseled: Patient, Family. Extracted from: Title:Pre-anesthesia - Adult Author:Tony Valencia Jr., DO Date:05/29/22 Plan [place] [employer] (ASA) physical status classification: Class III. Anesthetic Preoperative Plan Anesthesia: General. . Anesthetic plan, risks, benefits, and alternatives discussed with the patient and/or family. Patient verbalized understanding. Adverse reactions, complications, and alternatives discujssed. Consent signed and on chart.. Future Appointments Appointment Date:06/13/2022 09:15:00 AM Scheduled Provider:Elzbieta Perez MD Location:[facility] Appointment Type:URO Office Visit [facility]07-12-2022 Hospital Discharge instructions Patient Education 05/29/2022 11:14:32 Post Op Patient Instructions - FT (CUSTOM) 05/29/2022 10:05:37 Cook- Post-Op Instructions for Prostate Biopsy (Custom) [facility] [place], [place] Post-Operative Instructions for Transperineal Prostate Biopsy Discharge Instructions After your procedure You may see blood in your urine for 4 to 5 weeks. When your urine turns red, limit your activities and drink plenty of fluids. This is normal and expected. If you go home with a Brennan catheter in place, you will have it removed at your follow-up clinic appointment or by your own doctor (urologist). Your may be allowed to remove your Brennan catheter at home. If so, our nursing staff will teach you how to remove the catheter. You may have discoloration (black/blue), pain, and swelling to the perineal area (between your thighs) for up to 3 weeks. Ice, elevation, and supportive underwear can help ease these symptoms. -Apply antibiotic ointment and gauze daily until area dry Medications Ask your doctor when you may begin or continue taking aspirin or other blood thinners. Tylenol 650 mg every 6 hours for pain, after 24 hours can start to alternate with ibuprofen 400-600mg every 6 hours in between for pain Bowels Try to keep your bowel movements soft to minimize straining to have a bowel movement. You may use astool softener or over the counter laxative if needed. Difficult bowel movements may lead to straining and bleeding from the prostate. Activity You may begin driving 24 hours after surgery if you are not taking prescription pain medication. No heavy lifting for 2-3 days (nothing greater than 10 pounds). Diet Drink plenty of fluids. Continue your normal diet. Things to watch for which would require an Emergency Room visit or call 911: (this is not a complete list) *Persistent or heavy bleeding or blood clots from the rectum or in the urine *Inability to urinate *Fever over 101.5 degrees Fahrenheit, with or without chills *Severe drug reactions with itching, hives, or rash *Tenderness or swelling of the calves, chest pain, or shortness of breath Please call the office to arrange for your post-operative appointment in 1-2 weeks ([phone] or [phone]) Follow Up Care 05/03/2022 10:10:18 With:Elzbieta Perez Address: [facility] [place] [address]- [phone] Business (1) When: Unknown Comments:Call for followup appointment in 2 weeks to review pathology [facility]06-08-2022 Hospital Discharge instructions Patient Education 04/25/2022 09:51:08 Benign Prostatic Hyperplasia Benign Prostatic Hyperplasia Benign prostatic hyperplasia (BPH) is an enlarged prostate gland that is caused by the normal agingprocess and not by cancer. The prostate is a walnut-sized gland that is involved in the production of semen. It is located in front of the rectum and below the bladder. The bladder stores urine and the urethra is the tube that carries the urine out of the body. The prostate may get bigger as a man gets older. An enlarged prostate can press on the urethra. This can make it harder to pass urine. The build-up of urine in the bladder can cause infection. Back pressure and infection may progress to bladder damage and kidney (renal) failure. What are the causes? This condition is part of a normal aging process. However, not all men develop problems from this condition. If the prostate enlarges away from the urethra, urine flow will not be blocked. If it enlarges toward the urethra and compresses it, there will be problems passing urine. What increases the risk? This condition is more likely to develop in men over the age of 50 years. What are the signs or symptoms? Symptoms of this condition include: Getting up often during the night to urinate. Needing to urinate frequently during the day. Difficulty starting urine flow. Decrease in size and strength of your urine stream. Leaking (dribbling) after urinating. Inability to pass urine. This needs immediate treatment. Inability to completely empty your bladder. Pain when you pass urine. This is more common if there is also an infection. Urinary tract infection (UTI). How is this diagnosed? This condition is diagnosed based on your medical history, a physical exam, and your symptoms. Tests will also be done, such as: A post-void bladder scan. This measures any amount of urine that may remain in your bladder after you finish urinating. A digital rectal exam. In a rectal exam, your health care provider checks your prostate by putting a lubricated, gloved finger into your rectum to feel the back of your prostate gland. This exam detects the size of your gland and any abnormal lumps or growths. An exam of your urine (urinalysis). A prostate specific antigen (PSA) screening. This is a blood test used to screen for prostate cancer. An ultrasound. This test uses sound waves to electronically produce a picture of your prostate gland. Your health care provider may refer you to a specialist in kidney and prostate diseases (urologist). How is this treated? Once symptoms begin, your health care provider will monitor your condition (active surveillance or watchful waiting). Treatment for this condition will depend on the severity of your condition. Treatment may include: Observation and yearly exams. This may be the only treatment needed if your condition and symptoms are mild. Medicines to relieve your symptoms, including: ?Medicines to shrink the prostate. ?Medicines to relax the muscle of the prostate. Surgery in severe cases. Surgery may include: ?Prostatectomy. In this procedure, the prostate tissue is removed completely through an open incision or with a laparoscope or robotics. ?Transurethral resection of the prostate (TURP). In this procedure, a tool is inserted through the opening at the tip of the penis (urethra). It is used to cut away tissue of the inner core of the prostate. The pieces are removed through the same opening of the penis. This removes the blockage. ?Transurethral incision (TUIP). In this procedure, small cuts are made in the prostate. This lessens the prostate's pressure on the urethra. ?Transurethral microwave thermotherapy (TUMT). This procedure uses microwaves to create heat. The heat destroys and removes a small amount of prostate tissue. ?Transurethral needle ablation (TUNA). This procedure uses radio frequencies to destroy and remove a small amount of prostate tissue. ?Interstitial laser coagulation (ILC). This procedure uses a laser to destroy and remove a small amount of prostate tissue. ?Transurethral electrovaporization (TUVP). This procedure uses electrodes to destroy and remove a small amount of prostate tissue. ?Prostatic urethral lift. This procedure inserts an implant to push the lobes of the prostate away from the urethra. Follow these instructions at home: Take uyap-hez-lfvhgka and prescription medicines only as told by your health care provider. Monitor your symptoms for any changes. Contact your health care provider with any changes. Avoid drinking large amounts of liquid before going to bed or out in public. Avoid or reduce how much caffeine or alcohol you drink. Give yourself time when you urinate. Keep all follow-up visits as told by your health care provider. This is important. Contact a health care provider if: You have unexplained back pain. Your symptoms do not get better with treatment. You develop side effects from the medicine you are taking. Your urine becomes very dark or has a bad smell. Your lower abdomen becomes distended and you have trouble passing your urine. Get help right away if: You have a fever or chills. You suddenly cannot urinate. You feel lightheaded, or very dizzy, or you faint. There are large amounts of blood or clots in the urine. Your urinary problems become hard to manage. You develop moderate to severe low back or flank pain. The flank is the side of your body between the ribs and the hip. These symptoms may represent a serious problem that is an emergency. Do not wait to see if the symptoms will go away. Get medical help right away. Call your local emergency services (911 in the [place] Do not drive yourself to the hospital. Summary Benign prostatic hyperplasia (BPH) is an enlarged prostate that is caused by the normal aging process and not by cancer. An enlarged prostate can press on the urethra. This can make it hard to pass urine. This condition is part of a normal aging process and is more likely to develop in men over the age of 50 years. Get help right away if you suddenly cannot urinate. This information is not intended to replace advice given to you by your health care provider. Make sure you discuss any questions you have with your health care provider. Document Released: 11/04/2006 Document Revised: 09/29/2019 Document Reviewed: 12/09/2017 [employer] Patient Education 2020 [employer]. Follow Up Care 03/14/2022 10:37:48 With:Chris LOU, BERNABE Galvez, URO Address: When: Unknown Comments:will schedule MRI fusion bx [facility] 04-27-2022 Hospital Discharge instructions Patient Education 03/14/2022 10:31:32 Prostate Cancer Screening Prostate Cancer Screening The prostate is a walnut-sized gland that is located below the bladder and in front of the rectum in males. The function of the prostate (prostate gland) is to add fluid to semen during ejaculation. Prostate cancer is the second most common type of cancer in men. A screening test for cancer is a test that is done before cancer symptoms start. Screening can helpto identify cancer at an early stage, when the cancer can be treated more easily. The recommended prostate cancer screening test is a blood test called the prostate-specific antigen (PSA) test. PSA is a protein that is made in the prostate. As you age, your prostate naturally produces more PSA. Abnormally high PSA levels may be caused by: Prostate cancer. An enlarged prostate that is not caused by cancer (benign prostatic hyperplasia, BPH). This condition is very common in older men. A prostate gland infection (prostatitis). Medicines to assist with hair growth, such as finasteride. Depending on the PSA results, you may need more tests, such as: A physical exam to check the size of your prostate gland. Blood and imaging tests. A procedure to remove tissue samples from your prostate gland for testing (biopsy). Who should have screening? Screening recommendations vary based on age. If you are younger than age 40, screening is not recommended. If you are age 40 54 and you have no risk factors, screening is not recommended. If you are younger than age 55, ask your health care provider if you need screening if you have oneof these risk factors: ?Being of -[place] descent. ?Having a family history of prostate cancer. If you are age 55 69, talk with your health care provider about your need for screening and how often screening should be done. If you are older than age 70, screening is not recommended. This is because the risks that screening can cause are greater than the benefits that it may provide (risks outweigh the benefits). If you are at high risk for prostate cancer, your health care provider may recommend that you have screenings more often or start screening at a younger age. You may be at high risk if you: Are older than age 55. Are -[place]. Have a father, brother, or uncle who has been diagnosed with prostate cancer. The risk may be higher if your family member's cancer occurred at an early age. What are the benefits of screening? There is a small chance that screening may lower your risk of dying from prostate cancer. The chance is small because prostate cancer is typically a slow-growing cancer, and most men with prostate cancer from a different cause. What are the risks of screening? The main risk of prostate cancer screening is diagnosing and treating prostate cancer that would never have caused any symptoms or problems (overdiagnosis and overtreatment). PSA screening cannot tell you if your PSA is high due to cancer or a different cause. A prostate biopsy is the only procedure to diagnose prostate cancer. Even the results of a biopsy may not tell you if your cancer needs tony treated. Slow-growing prostate cancer may not need any treatment other than monitoring, so diagnosing and treating it may cause unnecessary stress or other side effects. A prostate biopsy may also cause: Infection or fever. A false negative. This is a result that shows that you do not have prostate cancer when you actually do have prostate cancer. Questions to ask your health care provider When should I start prostate cancer screening? What is my risk for prostate cancer? How often do I need screening? What type of screening tests do I need? How do I get my test results? What do my results mean? Do I need treatment? Contact a health care provider if: You have difficulty urinating. You have pain when you urinate or ejaculate. You have blood in your urine or semen. You have pain in your back or in the area of your prostate. You have trouble getting or maintaining an erection (erectile dysfunction, ED). Summary Prostate cancer is a common type of cancer in men. The prostate (prostate gland) is located below the bladder and in front of the rectum. This gland adds fluid to semen during ejaculation. Prostate cancer screening may identify cancer at an early stage, when the cancer can be treated more easily. The prostate-specific antigen (PSA) test is the recommended screening test for prostate cancer. Discuss the risks and benefits of prostate cancer screening with your health care provider. If you are age 70 or older, screening is likely to lead to more risks than benefits (risks outweigh the benefits). This information is not intended to replace advice given to you by your health care provider. Make sure you discuss any questions you have with your health care provider. Document Released: 08/15/2018 Document Revised: 10/17/2018 Document Reviewed: 08/15/2018 [employer] Patient Education 2020 [employer]. Follow Up Care 09/13/2021 10:57:58 With:Elzbieta Perez MD, UR, URO Address: When:04/25/2022 Comments:with MRI and MDX results [facility] evaluation + Plan note Future Appointments Appointment Date:04/25/2022 08:30:00 AM Scheduled Provider:Elzbieta Perez MD Location:[facility] Appointment Type:URO Office Visit [facility] evaluation + Plan note Future Appointments Appointment Date:04/26/2022 02:00:00 PM Scheduled Provider: Location:[facility] Appointment Type:Surgical PAT FT Appointment Date:05/01/2022 10:15:00 AM Scheduled Provider: Location:[facility] Appointment Type:Surgery FT Appointment Date:05/16/2022 08:45:00 AM Scheduled Provider:Elzbieta Perez MD Location:[facility] Appointment Type:URO Office Visit [facility] evaluation + Plan note Future Appointments Appointment Date:05/01/2022 10:15:00 AM Scheduled Provider: Location:[facility] Appointment Type:Surgery FT Appointment Date:05/16/2022 08:45:00 AM Scheduled Provider:Elzbieta Perez MD Location:[facility] Future App[facility]ments Appointment Date:07/11/2022 08:30:00 AM Scheduled Provider:Chris LOU, Elzbieta Garcia Location:[facility] Appointment Type:URO Office Visit [facility] evaluation note* Diagnosis Onset Date Resolution Status Prostate cancer acute [facility] Work Phone: [facility] Other Evaluation note* Diagnosis Onset Date Resolution Status Hypothyroidism acute Type 2 diabetes mellitus with hyperglycemia acute [facility]rt[facility] acute [facility] Work Phone: History general Narrative - Reported* Type Description Date Medical History hypothyroid Medical History high cholesterol Medical History HTN Medical History Prostate cancer Surgical History appendectomy Surgical History cataract removal Surgical History retina repair [facility] Other Hospital course Narrative No data available for this section [facility] Hospital Discharge instructions No data available for this section [facility] No data available for this section [facility] Author Jaja Lang [place] August 28, 2023 10:32am Note Date/Time August 28, 2023 8 :37am [facility] [place] [address] Rad Onc Follow Up Note - OP Signed Patient: Wilfredo Chappell MR#: [id number] : 1955 Acct:[id number] Age/Sex: 68 / M Type: REG RCR Copies to: MD Flaquita Landry MD~ Date of Service Service Date: 08/28/23 Assessment & Plan (1) Prostate cancer Plan: Return to clinic January 2024 with repeat PSA. 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 Technically he met Unfavorable criteria with 8 cores positive however patient did not under go PSMA PET as he moved it out until after his treatment and it was subsequently cancelled. His multi parametric MRI which showed organ confined disease with no concern for lymphadenopathy nor bone involvement. On August 03, 2022 he completed prostate SBRT to a dose of 37 Neal in 5 fractions delivered every other day. Posttreatment PSA Oct 2022 1.Jan 1.27 April 2023 2.25 - repeated today, 2.20 Aug 2023 1.5 It appears that he had a PSA bounce which is now normalized. We will continue to monitor. Patient return to clinic in January 2024 with repeat PSA. We offered virtual and phone follow-up however patient does not utilize a phone. Follow Up Note - Narrative 67-year-old male who has been under the care of urology secondary to BPH with urinary obstruction and ongoing nocturia. He was found to have an elevated PSA in February 2022 of 3.9. PSA history: February 2022 3.26 May 2022 2.88 Jul 2021 3.February 2.February 2.39 March 30, 2022 Multi parametric MRI of the prostate 2 prostate volume be 41 mL. There is a focal T2 hypointensity in the posterior aspect of the left peripheralzone measuring 6 mm. There is additional focus of T2 hypointensity in the lateral aspect of the left peripheral zone measuring 6 mm. There were BPH changes. There was no evidence of lymphadenopathy. May 29, 2022 MRI fusion biopsy showed 10 of 12 cores positive Hennessey 3+4 equal7 in 8cores (6 on the left and 2 on the right) and Mily 3+3 equal 6 in 2 cores on the right. At consult: AUA 3. Quality of life mostly satisfied. MARY is 3 consistent with severe erectile dysfunction. August 03, 2022 patient completed definitive SBRT to the prostate to a dose of 37 Neal in 5 fractions delivered every other day. He tolerated his treatmentwell and had no significant urinary complaints. He utilized tamsulosin 0.4 mg each evening. Posttreatment PSA Oct 2022 1.Jan 1.10 AUA 1 with stable nocturia 1 times a night. Quality of lifeis pleased MARY is 0. April 2023 2.25 repeated 05/28/23 and returned 2.20 Aug 2023 1.5 Last visit, AUA 7 with nocturia 2 times a night. Patient states that he has no change in his urinary symptoms despite the elevated PSA. Everything is fine denies dysuria. Quality of life mostly satisfied MARY is 0. He has no pelvic nor bowel complaints. Physical Exam General: alert and oriented male in no acute distress HEENT: normocephalic, extra ocular movements intact Lungs: normal work of breathing on room air Abdomen: non acute MSK: extremities within normal limits Neuro: grossly intact Dictated By: Jaja Lang MD DD/ [id number] Signed By: <Electronically signed by Jaja Lang MD> 08/28/23 1032 [facility] Work Phone: Summary Purpose Family History Relationship Condition Age at Onset Recorded Date/T veda Not Specified Diabetes mellitus Unknown Relationship Condition Age at Onset Recorded Date/T veda mother Diabetes mellitus Unknown father Unknown mother Unknown Advance Directives Advance Directive Response Recorded Date/ Time Advance Directives No March 22, 2022 2:13pm Advance Directive Response Recorded Date/ Time Advance Directives No March 22, 2022 1:13pm Reason for Referral Referred by: Chris LOU, Elzbieta Garcia Chief Complaint and Reason for Visit Chief Complaint Prostate Cancer Prostate Cancer Prostate Cancer Reason for Visit Prostate cancer Chief Complaint Prostate Cancer Reason for Visit Prostate cancer Chief Complaint wellness Reason for Visit Hypothyroidism Type 2 diabetes mellitus with hyperglycemia Urticaria Additional Source Comments Source Comments (unrecognize d section and content) In the event this informatio n is protected by the Federal Confidentiality of Alcohol and Drug Abuse Patient Records regulations: The Federal rules restrict any use of the information to criminally investigate or prosecute any alcohol or drug abuse patient.[facility] the event this information is protected by the Federal Confidentiality of Alcohol and Drug Abuse Patient Records regulations: The Federal rules restrict any use of the information to criminally investigate or prosecute any alcohol or drug abuse patient.[facility] (unrecognized sect ion and content) No Status Records FoundNo Status Records FoundNo Status Records FoundNo Status Records Found INFORMATION SOURCE (unrecogn ized section and content) DATE CREATED AUTHOR 12/26/2021 [facility] dical Specialist DATE CREATED AUTHOR AUTHOR'S ORGANIZ ATION 03/14/2022 [facility] DATE CREATED AUTHOR AUTHOR'S ORGANIZ ATION 08/30/2023 [facility] DATE CREATED AUTHOR AUTHOR'S ORGANIZ ATION 01/29/2024 [facility] Care Team (unrecognized sect ion and content) Team Status: Active Member Role Status Dates Flaquita Turner MD Primary Care Provider Active Team Status: Inactive Member Role Status Dates Flaquita Turner MD Primary Care Provide r, Attending Provider Active Start: May 26, 2024 End: May 26, 2024 Team Status: Active Member Role Status Dates Flaquita Turner MD Primary Care Provider Active Team Status: Active Member Role Status Dates Flaquita Turner MD Primary Care Provider Active Jaja Lang MD Attending Provider Active Elzbieta Perez MD Referring Provider Active Team Status: Inactive Member Role Status Dates Flaquita Turner MD Primary Care Provider Active Jaja Lang MD Attending Provider Active Team Status: Inactive Member Role Status Dates Flaquita Turner MD Primary Care Provide r, Attending Provider Active Start: May 26, 2024 End: May 26, 2024 Goals (unrecognized section and content) Goals may be documented in a n alternate section REASON FOR VISIT (unrecogniz ed section and content) WellnessRefillRashRashRaso [facility] [place], Congestion- [phone] FOR RECORDS PERTAINING TO PATIENTS WHO ARE OR HAVE BEEN ENROLLED IN A CHEMICAL DEPENDENCY/SUBSTANCEABUSE PROGRAM, SOME INFORMATION MAY BE OMITTED. This clinical summary was aggregated from multiple sources. Caution should be exercised in using it in the provision of clinical care. This summary normalizes information from multiple sources, and as a consequence, information in this document may materially change the coding, format and clinical context of patient data. In addition, data may be omitted in some cases. CLINICAL DECISIONS SHOULD BE BASED ON THE PRIMARY CLINICAL RECORDS. [facility] [employer] [facility]. provides no warranty or guarantee of the accuracy or completeness of information in this document.
== END 2024-09-14 06:04 | disposition home or self-care (01) ==
LOC: RAD 06:05
PROVIDERS: PCP Family Medicine; Visit Provider Family Medicine
DX: M25.561 Pain in right knee (principal); M25.551 Pain in right hip
CPT/HCPCS: 73502; 73564

== ENCOUNTER 2025-06-01 09:08 | Outpatient (OUT) | payer MEDICARE, SELFPAY ==
--- OUTSIDE RECORDS SUMMARY | 2025-06-01 05:01 | XMS_ITS | Continuity of Care Document ---
Author Organization [facility] Address [address] [place] [address] Phone Care Team Providers Care Digital Engineer Name Role Phone Flaquita Rey MD Primary Care Provider Marin Hong APRN Attending Provider [phone] Aisha Snowden APRN Attending Provider Jaja Lang MD Attending Provider Elzbieta Perez MD Referring Provider Flaquita Rey MD Attending Provider [phone] Care Teams Patient Care Team Team Status: Active Member Role Status Dates Flaquita Rey MD Primary Care Provider Active Visit Care Team Team Status: Inactive Member Role Status Dates Flaquita Rey MD Primary Care Provider Active Start: March 10, 2025 End: March 10, 2025 Marin Hong APRN Attending Provider Active Start: March 10, 2025 End: March 10, 2025 Visit Care Team Team Status: Inactive Member Role Status Dates Flaquita Rey MD Primary Care Provider Active Start: April 27, 2025 End: April 27, 2025 Aisha Snowden APRN Attending Provider Acti ve Start: April 27, 2025 End: April 27, 2025 Visit Care Team Team Status: Active Member Role Status Dates Flaquita Rey MD Primary Care Provider Active Start: April 27, 2025 Jaja Lang MD Attending Provider Active Start: April 27, 2025 Elzbieta Perez MD Referring Provider Active Start : April 27, 2025 Patient Care Team Team Status: Inactive Member Role Status Dates Flaquita Rey MD Primary Care Provider Active Start: June 01, 2025 End: June 01, 2025 Flaquita Rey MD Attending Provider Active St art: June 01, 2025 End: June 01, 2025 Chief Complaint and Reason for Visit Chief Complaint Admit Date 3 month-METER March 10, 2025 10: 17am Follow Up 6 Months, Review PSA April 8:42am Prostate Cancer April 27, 2025 9:00 am Wellness June 01, 2025 8:13 am Reason for Visit Admit Date BMI 36.0-36.9,adult March 10, 2025 10: 17am Dietary B12 deficiency March 10, 2025 10:17am Dietary counseling and surveillance Apri l 2024 10:17am Essential (primary) hypertension February 172024 10:17am Hyperlipidemia, unspecified March 10, 2025 10:17am Type 2 diabetes mellitus with hyperglyce ricardo March 10, 2025 10:17am Prostate cancer April 27, 2025 8:42 am Prostate cancer April 27, 2025 9:00 am BMI 36.0-36.9,adult June 01, 2025 8:13 am Essential (primary) hypertension June 012024 8:13am Gout, unspecified June 01, 2025 8:13 am Hyperlipidemia, unspecified June 01, 025 8:13am Hypothyroid June 01, 2025 8:13 am Medicare annual wellness visit, subseque nt June 01, 2025 8:13am Morbid (severe) obesity due to excess ca lories June 01, 2025 8:13am Type 2 diabetes mellitus with hyperglyce ricardo June 01, 2025 8:13am Allergies, Adverse Reactions, Alerts Allergen Type Severity Reaction Last Updated Verified Status No Known Allergies Allergy Unknown June 01, 2025 8:21a m Yes Active Social History Smoking Status Status Start Date End Date Date of Observa tion Never smoked tobacco (finding) October 05, 2024 9:27am Observation Status Observation Response Date of Response Legal Sex Male (finding) Sex Assigned At Male 1955 Family History Relationship Condition Age at Onset Recorded Date/T veda mother Diabetes mellitus Unknown father Unknown mother Unknown Problems Active Problems Medical Problem Onset Date Status Medicare annual wellness visit, subsequent Unkno wn Active Morbid (severe) obesity due to excess calories U nknown Active Type 2 diabetes mellitus with hyperglycemia Unkn own Active Sinusitis, acute maxillary Unknown Activ e Prostate cancer Unknown Active Gout, unspecified August 11, 2018 Active Dietary counseling and surveillance Unknown Active Hyperlipidemia, unspecified Unknown Acti ve Hypothyroid Unknown Active Hypothyroidism Unknown Active Essential (primary) hypertension Unknown Active BMI 36.0-36.9,adult Unknown Active Dietary B12 deficiency Unknown Active Right knee pain Unknown Active Contact dermatitis and eczema 2023 Ac tive Inactive/Resolved Problems Medical Problem Onset Date Status Cellulitis of buttock Unknown Resolved Urticaria Unknown Resolved BMI 37.0-37.9, adult Unknown Resolved Right hip pain Unknown Resolved Medications Medication Status Dose Units Route Directions Qty Days St art Date Stop Date End Date Instructions Adherence Linagliptin (Tradjenta) 5 mg tablet Discont inued 0 .ROUTE .COMPLEX January 20, 2024 1:13pm April 14, 2024 2:06p m TAKE 1 TABLET BY MOUTH EVERY DAY Allopurinol 300 mg tablet Discont inued 300 MG PO Daily February 18, 2024 9:42am February 28, 2024 9:07a m Allopurinol 300 mg tablet Discont inued 300 MG PO Daily February 28, 2024 9:07am February 28, 2024 9:08a m Allopurinol 300 mg tablet Discont inued 300 MG PO Daily February 28, 2024 9:08am March 09, 2024 11:19 am Allopurinol 300 mg tablet Discont inued 300 MG PO Daily March 09, 2024 11:18a m February 23, 2025 8:29a m Levothyroxi ne (Synthroid) 137 mcg tablet Discont inued 137 MCG PO Daily March 09, 2024 11:18a m Octob er 2023 10:38 pm Losartan 50 mg tablet Discont inued 50 MG PO Daily March 09, 2024 11:18a m May 26, 2024 10:29 am Metoprolol Succinate 50 mg tablet extended release 24 hr Discont inued 50 MG PO Daily March 09, 2024 11:19a m Octob er 2023 10:38 pm Linagliptin (Tradjenta) 5 mg tablet Discont inued 0 .ROUTE .COMPLEX April 14, 2024 2:06pm Septe mber 2023 8:05a m TAKE 1 TABLET BY MOUTH EVERY DAY Blood Sugar Diagnostic (Accu-Chek Guide Test Strips) strip Discont inued 0 .Route June 24, 2024 12:00a m February 24, 2025 9:48a m Use to test glucose daily Linagliptin (Tradjenta) 5 mg tablet Discont inued 0 .ROUTE .COMPLEX 30 Septem cathy 2023 8:05am Octob er 2023 3:24p m TAKE 1 TABLET BY MOUTH EVERY DAY Levothyroxi ne 137 mcg tablet Discont inued 0 .ROUTE .COMPLEX 90 Octobe r 2023 10:37p m February 23, 2025 8:29a m TAKE 1 TABLET BY MOUTH EVERY DAY Metoprolol Succinate 50 mg tablet extended release 24 hr Discont inued 0 .ROUTE .COMPLEX 90 Octobe r 2023 10:38p m Decem cathy 2023 10:18 am TAKE 1 TABLET BY MOUTH EVERY DAY Glipizide 10 mg tablet Discont inued 10 MG PO Daily Decemb er 2023 12:36p m Febru pablo2024 9:28a m Amlodipine 10 mg tablet Discont inued 10 MG PO Daily 2024 4:25pm February 16, 2025 2:50p m Metoprolol Succinate 100 mg tablet extended release 24 hr Active 100 MG PO Daily 2024 12:37p m Complies with drug therapy Glipizide 10 mg tablet Discont inued 10 MG PO Daily 2024 9:28am February 17, 2025 12:31 pm Losartan 50 mg tablet Active 0 .ROUTE .COMPLEX 90 2024 4:59pm TAKE ONE TABLET BY MOUTH EVERY DAY Complies with drug therapy Atorvastati n 20 mg tablet Active 0 .ROUTE .COMPLEX January 25, 2025 11:51a m TAKE 1 TABLET BY MOUTH DAILY Complies with drug therapy Metformin 750 mg tablet extended release 24 hr Discont inued 750 MG PO Twice daily February 01, 2025 8:22am February 23, 2025 9:45a m Amlodipine 10 mg tablet Discont inued 10 MG PO Daily February 16, 2025 2:50pm April 13, 2025 12:25 pm Glipizide 10 mg tablet Discont inued 0 .ROUTE .COMPLEX February 17, 2025 12:31p m March 10, 2025 11:18 am TAKE 1 TABLET BY MOUTH DAILY Allopurinol 300 mg tablet Active 300 MG PO Daily February 23, 2025 8:29am Complies with drug therapy Levothyroxi ne 137 mcg tablet Active 0 .ROUTE .COMPLEX February 23, 2025 8:29am TAKE 1 TABLET BY MOUTH EVERY DAY Complies with drug therapy Metformin 750 mg tablet extended release 24 hr Active 0 .ROUTE .COMPLEX 180 February 23, 2025 9:45am TAKE 1 TABLET BY MOUTH TWICE A DAY Complies with drug therapy Blood Sugar Diagnostic (Accu-Chek Guide Test Strips) strip Active 0 .Route February 24, 2025 9:48am Use to test glucose daily Amlodipine 10 mg tablet Active 10 MG PO Daily April 13, 2025 12:25p m Complies with drug therapy Levothyroxi ne (Synthroid) 137 mcg Tablet Discont inued 137 MCG PO Daily June 27, 2022 12:00a m February 14, 2024 10:05 am Losartan 25 mg Tablet Discont inued 25 MG PO Daily June 27, 2022 12:00a m February 14, 2024 9:37a m Allopurinol 300 mg Tablet Discont inued 300 MG PO Daily June 27, 2022 12:00a m February 14, 2024 10:05 am Esomeprazol e Magnesium (Nexium) 20 mg Capsule,Del ayed Release(Dr/ Ec) Active 20 MG PO Daily June 27, 2022 12:00a m Complies with drug therapy Metformin 750 mg Tablet Extended Release 24 Hr Discont inued 750 MG PO Daily June 27, 2022 12:00a m 2023 3:04p m Linagliptin (Tradjenta) 5 mg Tablet Discont inued 5 MG PO Daily June 27, 2022 12:00a m January 20, 2024 1:13p m Tamsulosin (Flomax) 0.4 mg Capsule Discont inued 0.4 MG PO Daily June 27, 2022 12:00a m February 11, 2023 8:50a m Metoprolol Succinate 50 mg tablet extended release 24 hr Discont inued MG PO February 11, 2023 12:00a m February 14, 2024 10:05 am Methylpredn isolone 4 mg tablets,dos e pack Discont inued 0 PO per package directions January 28, 2024 12:00a m May 26, 2024 8:53a m PO PER PKG DIR for 6 days Clotrimazol e-Betametha sone 1-0.05 % cream Discont inued 1 APPLIC TOPICA L Twice daily 45 January 28, 2024 12:00a m Octob er 2023 3:09p m Amlodipine 5 mg tablet Discont inued 5 MG PO Daily 30 Augobe r 2023 12:00a m Novem cathy 2023 3:02p m Meloxicam 15 mg tablet Discont inued 15 MG PO Daily 14 Augobe r 2023 12:00a m Novem cathy 2023 2:55p m Amoxicillin 500 mg tablet Discont inued 500 MG PO Three times daily 20 Augobe r 2023 12:00a m Novem cathy 2023 2:54p m Mupirocin 2 % ointment Discont inued 1 APPLIC TOPICA L Twice daily Novemb er 2023 1:00am 2024 12:01 pm Amoxicillin -Pot Clavulanate 875-125 mg tablet Discont inued 1 TAB PO Twice daily 2024 1:00am Nov ry 2024 11:57 am Semaglutide (Ozempic) 1 mg/dose (4 mg/3 mL) pen injector Active 1 MG SUBCUT every week March 10, 2025 12:00a m Complies with drug therapy Losartan 50 mg tablet Discont inued 50 MG PO Daily February 14, 2024 12:00a m February 14, 2024 10:05 am Allopurinol 300 mg tablet Discont inued 300 MG PO Daily February 14, 2024 10:04a m February 18, 2024 9:43a m Levothyroxi ne (Synthroid) 137 mcg tablet Discont inued 137 MCG PO Daily February 14, 2024 10:04a m March 09, 2024 11:19 am Losartan 50 mg tablet Discont inued 50 MG PO Daily February 14, 2024 10:05a m March 09, 2024 11:19 am Metoprolol Succinate 50 mg tablet extended release 24 hr Discont inued 50 MG PO Daily February 14, 2024 10:05a m March 09, 2024 11:19 am Simvastatin 40 mg tablet Discont inued 40 MG PO Daily May 26, 2024 12:00a m May 26, 2024 10:01 am Losartan 100 mg tablet Discont inued 100 MG PO Daily May 26, 2024 10:[email or web address] Amlod[facility] 10 mg tablet Discont inued 10 MG PO Daily 30 Novemb er 2023 3:01pm Dece cathy 2023 10:18 am Glipizide 10 mg tablet Discont inued 10 MG PO Daily 30 Novemb er 2023 1:00am [facility] cathy 2023 12:36 pm Metformin 750 mg tablet extended release 24 hr Discont inued 750 MG PO Twice daily 60 Novemb er 2023 3:07pm February 01, 2025 8:22a m Metoprolol Succinate 100 mg tablet extended release 24 hr Discont inued 100 MG PO Daily 30 Decemb er 2023 10:17a m [facility]2024 12:37 pm Amlodipine 10 mg tablet Discont inued 10 MG PO Daily 30 Decemb er 2023 10:18a m [facility] 2024 4:25p m Atorvastati n 20 mg tablet Discont inued 20 MG PO Daily Decemb er 2023 1:00am January 25, 2025 11:51 am Mupirocin 2 % ointment Discont inued 1 APPLIC TOPICA L Twice daily as needed 2024 11:57a m March 10, 2025 10:48 am Multivitami n tablet Active 1 TAB PO Daily 2024 1:00am Complies with drug therapy Glucosamine -Chondroit- Vit C-Mn (Glucosamin e Chondroitin Maxstr) 500-400 mg capsule Active 2 CAP PO Daily 2024 1:00am Complies with drug therapy Glipizide 10 mg tablet Active 10 MG PO Daily June 01, 2025 12:00a m Complies with drug therapy Immunizations Immunization Event Date Not Given Reason Dose Number Tile Fitter Lot Number Vaccine Information Statement (VIS) Detail Administration Location COVID-Mable Moreland (Pfizer) March 16, 2021 Pneumococcal Conjugate Vaccine, 13 valent May 19, 2020 Medical Equipment Device Date Implanted Device Details Radiotherapy protection spacer July 10, 2022 ZULEIMA: [id number] Issuing Agency: [facility] Device Id: [id number] Expiration Date: 2023-10-12 Lot Number: [id number] Imaging lesion localization marker, implantable July 10, 2022 ZULEIMA: [id number] Issuing Agency: [facility] Device Id: [id number] Expiration Date: 2027-03-19 Lot Number: [id number] Imaging lesion localization marker, implantable July 10, 2022 ZULEIMA: [id number] Issuing Agency: [facility] Device Id: [id number] Expiration Date: 2027-03-19 Lot Number: [id number] Imaging lesion localization marker, implantable July 10, 2022 ZULEIMA: [id number] Issuing Agency: [facility] Device Id: [id number] Expiration Date: 2027-03-19 Lot Number: [id number] Procedures Procedure Date Performed Status MR prostate wo/w con July 12, 2022 3:16pm co mpleted Relevant Diagnostic Tests and/or Laboratory Data Laboratory Results Test Collection Date/Time Result Date/Time Result Interpretation Reference Range Result Comment Performing Site Bedside Hemoglobi n A1c March 10, 2025 10:39am March 10, 2025 10:55am 5.8 % Bedside Glucose March 10, 2025 10:53am March 10, 2025 10:55am 181 Prostate Specific Antigen Total April 20, 2025 7:22am April 20, 2025 8:37am 0.310 ng/mL 0.000-4.00 0 Serial tumor marker results determined by assays using different technical consultant s or methods may not be comparable.[facility] technical consultant and method:KELSEY WILKINSON UNICEL DXI, CHEMILUMINES CENT IMMUNOASSAY. [facility] [id number] [address] [place], [place] [id number] Vital Signs Vital Reading Result Reference Range Collection Date/Time Height 66 [in_i] March 10 10:41am Weight 103.80 kg March 10 10:41am Heart Rate 80 /min 60-100 March 10 10:41am Respiratory rate 18 /min 12-24 March 10, 2025 10:41am Oxygen saturation by Pulse oximetry 96 % 95-100 March 10, 2025 10: 41am BP Systolic 154 mm[Hg] 100-140 March 10 10:41am BP Diastolic 84 mm[Hg] 60-100 March 10 10:41am BMI (Body Mass Index) 36.9 kg/m2 March 10, 2025 10:41am Height 66 [in_i] January 26 8:58am Weight 107.04 kg January 26 8:58am Body Temperature 98.1 [degF] 97.6-99.0 February 11, 2023 8:51am Heart Rate 77 /min 60-90 August 28, 2 023 10:08am Respiratory rate 18 /min -August 10:08am Oxygen saturation by Pulse oximetry 97 % 95-100 August 28, 2023 1 0:08am BP Systolic 169 mm[Hg] 100-140 August 28, 2 023 10:08am BP Diastolic 86 mm[Hg] 60-100 August 28, 2 023 10:08am Height 66 [in_i] June 01, 2025 8:19am Weight 103.13 kg June 01, 2025 8:19am Heart Rate 81 /min 60-100 June 01, 2025 8:19am Respiratory rate 12 /min -June 01, 2025 8:19am Oxygen saturation by Pulse oximetry 97 % 95-100 June 01, 2025 8:19 am BP Systolic 149 mm[Hg] 100-140 June 01, 2025 8:19am BP Diastolic 83 mm[Hg] 60-100 June 01, 2025 8:19am BMI (Body Mass Index) 36.6 kg/m2 May 182024 8:19am Advance Directives Advance Directive Response Recorded Date/ Time Advance Directives No September 10:27am Insurance Providers Guarantor Rosalia Hurtado Address [address] [place] [phone] Contact Info. Home Phone: Payer Policy Id Subscriber's Name Subscriber Id Effectiv e Date Expiration Date Medicare [id number] Rosalia Hurtado [id number] Encounters Encounter Location(s) Arrival/Admit Date Discharge/Depart Date Provider(s) Departed Physician/Provi garth Office Visit -[facility] March 10, 2025 10:17am March 10, 2025 11:19am MICHELLE Kwan Departed Physician/Provi garth [facility] April 27, 2025 8:42am April 27, 2025 9:08am Aisha Snowden APRN Registered Recurring -[facility] April 27, 2025 9:00am Jaja Lang MD Departed Physician/Provi garth Office Visit -[facility] June 01, 2025 8:13am June 01, 2025 8:59am Flaquita Rey MD Recent Diagnosis Onset Date Admit Date BMI 36.0-36.9,adult Unknown March 10, 2025 10:17am Dietary B12 deficiency Unknown February 10:17am Dietary counseling and surveillance Unknown March 10, 2025 10:17am Essential (primary) hypertension Unknown March 10, 2025 10:17am Hyperlipidemia, unspecified Unknown Apri l 2024 10:17am Type 2 diabetes mellitus wit h hyperglycemia Unknown March 10, 2025 10:17am Prostate cancer Unknown April 27, 2025 8:42am Prostate cancer Unknown April 27, 2025 9:00am BMI 36.0-36.9,adult Unknown June 01, 8:13am Essential (primary) hypertension Unknown June 01, 2025 8:13am Gout, unspecified August 11, 2018May 8:13am Hyperlipidemia, unspecified Unknown June 01, 2025 8:13am Hypothyroid Unknown June 01, 2025 8:13am Medicare annual wellness vis it, subsequent Unknown June 01, 2025 8:13am Morbid (severe) obesity due to excess calories Unknown June 01, 2025 8:13am Type 2 diabetes mellitus wit h hyperglycemia Unknown June 01, 2025 8:13am Assessments Diagnosis Onset Date Resolution Status Admit Date BMI 36.0-36.9,adult acute March 10, 2025 10:17am Dietary B12 deficiency acute Ap 2024 10:17am Dietary counseling and surveillance acute March 10, 2025 10:17am Essential (primary) hypertension acute March 10, 2025 10:17am Hyperlipidemia, unspecified acute March 10, 2025 10:17am Type 2 diabetes mellitus with hyperglycemia acute March 10, 025 10:17am Prostate cancer acute April 8:42am Prostate cancer acute April 9:00am BMI 36.0-36.9,adult acute June 01, 2025 8:13am Essential (primary) hypertension acute June 01, 2025 8:13am Gout, unspecified August 11, 2018 acute June 01, 2025 8:13am Hyperlipidemia, unspecified acute June 01, 2025 8:13am Hypothyroid acute June 01 8:13am Medicare annual wellness visit, subsequent acute June 01 8:13am Morbid (severe) obesity due to excess calories acute June 01 8:13am Type 2 diabetes mellitus with hyperglycemia acute June 01 8:13am Plan of Treatment Author [facility] Authored April 27, 2025 9:46 am Return to clinic 1 year with PSA - COP[facility] OPERATOR visit Assessment: 69-year-old male with 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 Technically he met Unfavorable criteria with 8 cores positive however patient did not under go PSMA PET as he moved it out until after his treatment and it was subsequently cancelled. His multi parametric MRI which showed organ confined disease with no concern for lymphadenopathy nor bone involvement. August 03, 2022 he completed prostate SBRT to a dose of 37 Neal in 5 fractions delivered every other day. Posttreatment PSA Oct 2022 1.Jan 1.10 AUA 1 with stable nocturia 1 times a night. Quality of life is pleased MARY is 0. April 2023 2.25 repeated 05/28/23 and returned 2.20 Aug 2023 1.21 Jan 2024 0.Oct 0.April 0.310 (elena) We continue to be pleased with his biochemical and clinical response. He is now almost 3 years out from treatment and would like to push visits out further given his stability and travel in for appointments. We will plan repeat PSA with follow-up in 1 year, sooner if needed. Author Marin Hong [facility] Authored March 10, 2025 11: 29am Type 2 diabetes mellitus Clinical Notes: 1. Controlled, a Type 2 diabetes with A1c of 5.8% 2. Blood glucose levels improved. Isolated incident of hypoglycemia. Recommend stopping glipzide. Pt reports no s/e from ozempic 0.5mg discussed w/ pt increasing dose to 1mg sq once weekly, pt agreeable. Will send new order to [facility]. Stop glipzide. Continue: metformin er 750mg 1 tab twice sutton. increase ozempic 0.5 to 1mg sq once weekly. 3. Patient is alert, oriented and receptive to making changes or counseling Notes: Seen for an assessment of current glucose pattern, changes in treatment plan, this time was spent counseling and coordination of care related to diabetes, risks, and benefits of treatment, medications, and side effects. TOPICS REVIEWED: 1. Time was spent reviewing: a. Basic concepts of diabetes, progressive beta cell . b. Nutrition: Concepts of healthy diet reviewed, encouraged to decrease saturated fat in diet and increase non-starchy vegetables and fruits in diet. BMI: Pt. needs to select one small change to decrease caloric intake or increase physical activity to help decrease weight. c. Correct treatment of hypoglycemia, carry a glucose source at all times on your person, in vehicles, and at bedside. Can use glucose tablets/4, four ounces of pop or juice equal to 15 G of carbohydrate. Blood glucose should be 100 mg/dl or higher when driving. d. ADA glucose goals for age and medical complexity reviewed e. Patient questions addressed 2. Activity/exercise: Encouraged to start any form of physical activity. Start low level and increase slowly to a minimal goal of 150 minutes/week. Limit activity to what is allowed by other issues such as cardiac, pulmonary or orthopedic restrictions. 3. Standards of care: Reminded to have an annual dilated eye exam, A1C every 3 months, urine testing for microalbumin once/year, check feet daily and report any cuts or sores that do not appear to be healing. 4. Meter: Plan to check blood glucose: Please check blood glucose levels 1 time/day. 5. [facility]. Contact office if any issues or concerns with patterns of hypoglycemia, hyperglycemia, or diabetes medication issues. 6. Prescriptions: REDD Wood- none. Patient Assistance: Chelsey PAP for Ozempic. Approved for 2024. Recommend increasing dose to 1mg sq once weekly. 7. Prescriptions will not be filled unless you are compliant with follow up appointments or have a follow up appointment scheduled as ordered by your provider. Refills should be requested at the time of your visit. 8. Labs orderd by pcp- recommend labs be done on arb- above target; f/u w/ pcp for further recommendation 2024 ADA Guidelines- target blood pressure < 130/80, if it can be safely attained. 06/10 ldl 107/trig 263- on statin, above target; f/u w/ pcp for further recommendation 2024 ADA guidelines- people with Diabetes age 40-75 at higher CV risk including those with one or more additional ASCVD risk factors, high intensity statin therapy recommended to reduce ldl by >50% of baseline and to obtain goal ldl <70 Lab ordered, pt currently on metformin therapy see above see above Future Tests Future scheduled test information is unavailable Pending Tests Test Name Ordered Date Scheduled Date Comprehensive Metabolic Panel June 01, 2025 8: 54am Future Visits Future appointment information is unavailable Referrals to Other Providers Referral information is unavailable Future Procedures Procedure Name Ordered Date Scheduled Date Complete Blood Count Auto Diff June 01, 2025 8 :54am Lipid Panel June 01, 2025 8:54am MicroAlb Creat Ratio,U June 01, 2025 8:54am Free T4 (Free Thyroxine) June 01, 2025 8:54am Thyroid Stim Hormone w/Rflx June 01, 2025 8:54 am Uric Acid June 01, 2025 8:54am Future Medications Future medication information is unavailable Patient Instructions Instruction Admit Date Diabetes and diet March 10, 2025 10: 17am
--- OUTSIDE RECORDS SUMMARY | 2025-06-01 09:21 | XMS_ITS | Encounter Summary ---
Author Organization [facility] Address [address] [place] [address] Care Team Providers Care Gravity Prospector Name Role Phone Flaquita Rey MD Primary Care Provider [phone] Source Comments In the event this information is protected by the Federal Confidentiality of Alcohol and Drug AbusePatient Records regulations: The Federal rules restrict any use of the information to criminally investigate or prosecute any alcohol or drug abuse patient.[facility] Encounter Details Date Type Department Care Team (Latest Contact Info) Description 08/26/2020 H&P External-NonCCF Provider, External, CASSANDRA Do not enter address information under generic External Provider. Social History Tobacco Use Types Packs/Day Years Used Date Smoking Tobacco: Never Assessed AUDIT-C Answer Date Recorded Q1: How often do you have a drink containing alcohol? 4 or more times a week 08/29/2020 Q2: How many drinks containi ng alcohol do you have on a typical day when you are drinking? 1 or 2 0 Q3: How often do you have si x or more drinks on one occasion? Less than monthly 08/29/2020 Sex and Gender Information Value Date Recorded Sex Assigned at Not on file Legal Sex Male 2:26 PM EDT Gender Identity Not on file Sexual Orientation Not on file COVID-19 Exposure Response Date Recorded In the last month, have you been in contact with someone who was confirmed or suspected to have Coronavirus / COVID-19? No / Unsure 08/29/2020 2:38 PM EDT documented as of this encounter Functional Status documented as of this encounter Plan of Treatment Not on file documented as of this encounter Visit Diagnoses Not on filedocumented in this encounter Care Teams Gravity Prospector Relationship Specialty Start Date End Date Flaquita Rey MD [address] [place] [address] PCP - General Family Medicine 08/25/20 documented as of this encounter
--- OUTSIDE RECORDS SUMMARY | 2025-06-01 09:21 | XMS_ITS | Clinical Summary ---
Author Organization [facility] Address [id number] [address] [place] [address] Care Team Providers Care Merchandising Specialist Name Role Phone Flaquita Rey MD Primary Care Provider [phone] Allergies No known active allergies Medications levothyroxine (SYNTHROID, LEVOTHROID) 100 MCG tablet Take 137 mcg by mouth daily. Active allopurinoL (ZYLOPRIM) 300 mg tablet Take 300 mg by mouth daily. Active esomeprazole (NexIUM) 40 mg capsule Take 20 mg by mouth every morning before breakfast. Active tavpltbv-xnhl-F A-calcium &mins (THERAGRAN-M) 9 mg iron-400 mcg tablet Take 1 tablet by mouth daily. Active losartan (COZAAR) 25 mg tablet Take 25 mg by mouth daily. Active metoprolol succinate XL (TOPROL XL) 50 mg 24 hr tablet Take 50 mg by mouth daily. Active Active Problems No known active problems Family History Medical History Relation Name Comments No Known Problems Father No Known Problems Mother Relation Name Status Comments Father Mother Social History Tobacco Use Types Packs/Day Years Used Date Smoking Tobacco: Some Days Cigars Smokeless Tobacco: Former Chew Comments:on occassion, does not inhale Alcohol Use Standard Drinks/Week Comments Yes 0 (1 standard drink = 0.6 oz pur e alcohol) occassional Childcare Answer Date Recorded Childcare Unknown 04/29/2019 Employment Answer Date Recorded Employment Unknown 04/29/2019 Sex and Gender Information Value Date Recorded Sex Assigned at Not on file Legal Sex Male 12:06 PM EDT Gender Identity Not on file Sexual Orientation Not on file Last Filed Vital Signs Vital Sign Reading Time Taken Comments Blood Pressure 120/81 01/24/2022 1:45 PM EST Pulse 79 01/24/2022 1:45 PM EST Temperature 36.2 C (97.2 F) 01/24/2022 12:55 PM EST Respiratory Rate 15 01/24/2022 1:35 PM EST Oxygen Saturation 91% 01/24/2022 1:45 PM EST Inhaled Oxygen Concentration - - Weight 106.6 kg (235 lb) 01/24/2022 10:33 AM EST Height 170.2 cm (5' 7 ) 01/24/2022 10:33 AM EST Body Mass Index 36.81 01/24/2022 10:33 AM EST Plan of Treatment Health Maintenance Due Date Last Done Comments Depression Screening 1967 Tobacco Screening 1967 Adult BMI Screening 1973 DTaP,Tdap and Td Vaccines (1 - Tdap) 1974 Zoster (Shingles) Vaccine (1 of 2) 2005 Fall Risk Screening 2020 COVID-19 Vaccine ( season) 2024, 02/23/2021 Influenza Vaccine 07/19/2025 Medical Devices Not on file Insurance [employer] Care Teams Merchandising Specialist Relationship Specialty Start Date End Date Flaquita Rey MD [address] [place] [address] PCP - General Family Medicine 01/11/22
--- OUTSIDE RECORDS SUMMARY | 2025-06-01 09:21 | XMS_ITS | Clinical Summary ---
Author Organization [facility] Address [address] [place] [address] Care Team Providers Care Vegetable Loader Name Role Phone Flaquita Rey MD Primary Care Provider [phone] Allergies No known active allergies Medications levothyroxine 112 mcg cap Take 112 mcg by mouth daily before breakfast. Active METOPROLOL SUCCINATE ORAL Take by mouth. Active allopurinol (ZYLOPRIM) 300 mg tablet Take 300 mg by mouth once daily. Active simvastatin (ZOCOR) 40 mg tablet Take 40 mg by mouth daily at bedtime. Active losartan (COZAAR) 25 mg tablet 08/25/2020 Active Social History Tobacco Use Types Packs/Day Years Used Date Smoking Tobacco: Never Smokeless Tobacco: Former Chew Alcohol Use Standard Drinks/Week Comments Yes 2 (1 standard drink = 0.6 oz pur e alcohol) AUDIT-C Answer Date Recorded Q1: How often do you have a drink containing alcohol? 4 or more times a week 08/29/2020 Q2: How many drinks containi ng alcohol do you have on a typical day when you are drinking? 1 or 2 0 Q3: How often do you have si x or more drinks on one occasion? Less than monthly 08/29/2020 Area Deprivation Index Answer Date Fausto rded National Score (1-100), lower number is lower ri sk Not on file 10/25/2020 State Score (1-10), lower number is lower risk N ot on file 10/25/2020 Data from: https://www.neighborhoodatlas.medicine.[facility].edu/. Last address used for calculation Not on file 10/25/2020 Sex and Gender Information Value Date Recorded Sex Assigned at Not on file Legal Sex Male 2:26 PM EDT Gender Identity Not on file Sexual Orientation Not on file Last Filed Vital Signs Vital Sign Reading Time Taken Comments Blood Pressure 170/68 09/13/2020 12:58 PM EDT Pulse 75 09/13/2020 12:58 PM EDT Temperature 36.6 C (97.9 F) 09/13/2020 12:58 PM EDT Respiratory Rate 16 09/13/2020 12:58 PM EDT Oxygen Saturation 98% 09/13/2020 12:58 PM EDT Inhaled Oxygen Concentration - - Weight 112.5 kg (248 lb) 09/13/2020 12:58 PM EDT Height 170.2 cm (5' 7.01 ) 09/13/2020 12:58 PM E DT Body Mass Index 38.83 09/13/2020 12:58 PM EDT Plan of Treatment Health Maintenance Due Date Last Done Comments Anxiety Screening 1973 Depression Screening 1973 DTaP,Tdap,Td Vaccine (1 - Tdap) [address] Colonography 2000 Cologuard (FIT-DNA) 2000 Colonoscopy 2000 Colorectal Cancer Screening 2000 Fecal Occult Blood 2000 Sigmoidoscopy 2000 Pneumococcal Vaccine: 50+ (1 of 1 - PCV) 2005 Shingrix Vaccine (1 of 2) 2005 Diabetes Screening 08/29/2023 08/29/2020 Covid-19 Vaccine (1 - 2023- season) 2024 Advance Directive Discussion 11/18/2024 Influenza Vaccine (#1) 2025 RSV Vaccine (1 - 1-dose 75+ series) 2030 Hepatitis C Screening Completed 08/29/2020 Procedures Procedure Name Priority Date/Time Associated Diagnosis Comments *HEP C AB Routine 08/29/2020 3:38 PM EDT Leukopenia, unspecified type COMPREHENSIVE METABOLIC PANEL Routine 08/29/2020 3:38 PM EDT Leukopenia, unspecified type from Last 3 Months or Most Recently Relevant to Health Maintenance Results * HEP REMOTE PANEL BL (08/29/2020 3:38 PM EDT) Hep B Core Ab, Total Negative Negative 08/30/2020 11:55 AM EDT [facility] Hep C Antibody IA Negative Negative 08/30/2020 11:56 AM EDT [facility] HBsAg Negative Negative 08/30/2020 11:56 AM EDT [facility] Hep B Surface Ab, Qual Negative Negative 08/30/2020 11:56 AM EDT [facility] Comment:NEGATIVE Blood BLOOD SPECIMEN / Unknown 08/29/2020 3:38 PM EDT 08/29/2020 3:40 PM EDT Vaibhav Dash MD LABORATORY Final Result [facility] [address] [place] [address] [facility] [address] [place] [address] * (ABNORMAL) COMP METABOLIC PANEL (08/29/2020 3:38 PM EDT) Pathologist [facility] Protein, Total 7.4 6.3 - 8.0 g/dL 08/29/2020 4:04 PM EDT [facility] Albumin 4.5 3.9 - 4.9 g/dL 08/29/2020 4:04 PM EDT [facility] Calcium 9.7 8.5 - 10.2 mg/dL 08/29/2020 4:04 PM EDT [facility] Bilirubin, Total 1.4(H) 0.2 - 1.3 mg/dL 08/29/2020 4:04 PM EDT [facility] Alkaline Phosphatase 66 38 - 113 U/L 08/29/2020 4:04 PM EDT [facility] AST 56(H) 14 - 40 U/L 08/29/2020 4:04 PM EDT [facility] Glucose 140(H) 74 - 99 mg/dL 08/29/2020 4:04 PM EDT [facility] Comment: The [place] Diabetes [employer] (ADA) provides guidance for cutoff values for fasting glucose and random glucose. The ADA defines fasting as no caloric intake for at least 8 hours. Fasting plasma glucose results between 100 to 125 mg/dL indicate increased risk for diabetes (prediabetes). Fasting plasma glucose results greater than or equal to 126 mg/dL meet the criteria for diagnosis of diabetes. In the absence of unequivocal hyperglycemia, results should be confirmed by repeat testing. In a patient with classic symptoms of hyperglycemia or hyperglycemic crisis, random plasma glucose results greater than or equal to 200 mg/dL meet the criteria for diagnosis of diabetes. Reference: Standards of Medical Care in Diabetes 2016, [place] [employer]. Diabetes Care. 2016.39(Suppl 1). BUN 12 9 - 24 mg/dL 08/29/2020 4:04 PM EDT [facility] Creatinine 0.83 0.73 - 1.22 mg/dL 08/29/2020 4:04 PM EDT [facility] Sodium 137 136 - 144 mmol/L 08/29/2020 4:04 PM EDT [facility] Potassium 3.9 3.7 - 5.1 mmol/L 08/29/2020 4:04 PM EDT [facility] Chloride 102 97 - 105 mmol/L 08/29/2020 4:04 PM EDT [facility] CO2 27 22 - 30 mmol/L 08/29/2020 4:04 PM EDT [facility] Anion Gap 8(L) 9 - 18 mmol/L 08/29/2020 4:04 PM EDT [facility] ALT 58(H) 10 - 54 U/L 08/29/2020 4:04 PM EDT [facility] eGFR- >60 08/29/2020 4:04 PM EDT [facility] eGFR-All Other Races >60 . 08/29/2020 4:04 PM [facility] Comment: eGFR (Estimated GFR) Units of measure: mL/min/1.73 meters squared eGFR is derived from the reexpressed MDRD Study equation using the following parameters: serum creatinine, age, gender and race. The creatinine assay has been calibrated to be traceable to IDMS. An eGFR <60 mL/min/1.73m2 for >3 months is consistent with chronic kidney disease. Refer to KDOQI guidelines for clinical interpretation. In patients with unstable renal function, e.g. those with acute kidney injury, the eGFR may not accurately reflect actual GFR. Blood BLOOD SPECIMEN / Unknown 08/29/2020 3:38 PM EDT 08/29/2020 3:40 PM EDT us Vaibhav Dash MD LABORATORY Final Result [facility] [place] [address] [place] [address] [facility] [address], [place] from Last 3 Months or Most Recently Relevant to Health Maintenance Insurance [facility] [place] [address] Care Teams Vegetable Loader Relationship Specialty Start Date End Date Flaquita Rey MD [address] [facility] [place] [id number] PCP - General Family Medicine 08/25/20
[2025-06-01 10:01] LABS: Hematocrit 42.0 % (42.0-54.0); Hemoglobin 14.7 g/dL (14.0-18.0); Immature Granulocytes Abs Auto 0.01 10^3/uL (0.00-0.03); Immature Granulocytes Pct Auto 0.3 % (0.0-0.5); Lymphocytes Absolute Auto 1.3 10^3/uL (1.2-3.8); Mean Corpuscular HGB Conc 35.0 g/dL (29.9-35.2); Mean Corpuscular Hemoglobin 33.9 pg (25.9-34.0); Mean Corpuscular Volume 97.0 fL (80.0-94.0); Platelet Count 157 10^3/uL (150-450); Red Blood Count 4.33 10^6/uL (4.70-6.10); White Blood Count 3.3 10^3/uL (4.0-11.0)
[2025-06-01 10:40] LABS: Microalbum Creatinine Ratio Ur 34.4 mg/g (0.0-29.9)
[2025-06-01 10:50] LABS: Alanine Aminotransferase 52 U/L (16-63); Albumin Globulin Ratio 1.3; Albumin Level 4.2 g/dL (3.4-5.0); Alkaline Phosphatase 58 U/L (46-116); Anion Gap 16.0; Aspartate Amino Transferase 37 U/L (15-37); Blood Urea Nitrogen 21.0 mg/dL (7.0-18.0); Calcium 9.4 mg/dL (8.5-10.1); Carbon Dioxide 27.1 mmol/L (21.0-32.0); Chloride 106 mmol/L (98-107); Cholesterol 115 mg/dL (<=200); Estimated GFR (African America >60 (>=60 mL/min/1.73m^2); Estimated GFR (Non-African Ame >60 (>=60 mL/min/1.73m^2); Globulin 3.2 g/dL; Glucose 175 mg/dL (74-106); HDL Cholesterol 42 mg/dL (40-60); Potassium 4.1 mmol/L (3.5-5.1); Sodium 145 mmol/L (136-145); Thyroid Stimulating Hormone 0.938 uIU/mL (0.358-3.740); Total Protein 7.4 g/dL (6.4-8.2); Triglycerides 130 mg/dL (<=150); Uric Acid 5.1 mg/dL (3.5-7.2); VLDL CHOLESTEROL 26.0 mg/dL
== END 2025-06-01 09:09 | disposition home or self-care (01) ==
LOC: LAB 09:09
PROVIDERS: PCP Family Medicine; Visit Provider Family Medicine
DX: E78.2 Mixed hyperlipidemia (principal); E03.9 Hypothyroidism, unspecified; I10 Essential (primary) hypertension; E11.65 Type 2 diabetes mellitus with hyperglycemia; M10.9 Gout, unspecified
CPT/HCPCS: 36415; 80053; 80061; 82043; 82570; 84439; 84443; 84550; 85025